=== PATIENT | female | born 1995 | race Caucasian/White ===

== ENCOUNTER 2020-01-16 08:35 | Emergency (ER) | payer OTHER, SELFPAY ==
[2020-01-16 08:43] VITALS: BP 133/95; PULSE 88; RESP 16; TEMP 37; O2SAT 98; BMI 20.5
--- NOTE | 2020-01-16 08:49 | W.ED.FALL ---
HPI - Fall General: Chief Complaint: Fall Stated Complaint: RIGHT WRIST PAIN Time Seen by Provider: 01/16/20 08:48 Source: patient Mode of arrival: ambulatory Limitations: no limitations History of Present Illness: HPI Narrative: Patient comes in today with complaints of right wrist injury. Patient reports skating last night and fell on her outstretched arm injuring her right wrist. Patient has swelling and pain with movement to the wrist and fingers. Patient appears well. Patient appears in mild to moderate pain. complaint: fall Review of Systems General: Reports: 10 or more systems reviewed and unremarkable except in HPI and below Musc: Reports: joint pain PFSH ED PFSH: Social History Smoking and tobacco status: current every day smoker Female Reproductive History: Date of last menstrual period: 01/16/20 Physical Exam Const: COMMON NORMALS: no apparent distress and oriented x3 GENERAL APPEARANCE: cooperative HENMT: COMMON NORMALS: normocephalic, external ears normal, EAC's normal, TM's normal bilaterally and external nose normal HEAD & SCALP: normal to inspection and normocephalic FACE & SINUS: normal facial exam NOSE: external nose normal GENERAL EAR: hearing not grossly impaired EXTERNAL EAR: Yes external ears normal EXTERNAL AUDITORY CANAL: EAC's normal TYMPANIC MEMBRANE: TM's normal bilaterally MOUTH: oral and palatal mucosa normal THROAT: posterior oropharynx normal Eye: COMMON NORMALS: PERRL and EOMs intact bilaterally PUPIL: Yes PERRL Neck/C-Spine: COMMON NORMALS: full ROM and no lymphadenopathy Lymph: LYMPHATIC: no lymphedema noted Chest: COMMONS NORMALS: inspection of chest normal and palpation of chest normal Resp: COMMON NORMALS: normal respiratory effort and clear to auscultation bilaterally AUSCULTATION: clear to auscultation bilaterally Cardio: COMMON NORMALS: regular rate and regular rhythm RATE: regular rate RHYTHM: regular rhythm GI: COMMON NORMALS: normal to inspection, nondistended, normoactive bowel sounds and non-tender : COMMON NORMALS: Yes no CVA tenderness BLADDER/KIDNEY EXAM: Yes no CVA tenderness Back/Pelvis: COMMON NORMALS: no CVA tenderness and thoracic and lumbar spine normal to inspection Extremity: COMMON NORMALS: normal to inspection GENERAL: Yes edema (right wrist) RIGHT UPPER EXTREMITY: Yes wrist Right wrist: Yes inspection (mild swelling) and Yes ROM (decreased d/t pain) Neuro: COMMON NORMALS: oriented x3, moves all extremities and no focal motor deficits Psych: COMMON NORMALS: mental status grossly normal and cooperative Skin: COMMON NORMALS: no rashes or lesions noted GENERAL SKIN EXAM: no rashes or lesions noted Course Vital Signs: Vital signs: Vital Signs Temperature 98.6 F 01/16/20 08:43 Pulse Rate 88 01/16/20 08:43 Respiratory Rate 16 01/16/20 08:43 Blood Pressure 133/95 01/16/20 08:43 Pulse Oximetry 98 01/16/20 08:43 MDM - Fall MDM Narrative: Medical decision making narrative: Patient comes in with injury to the right wrist area. On exam we note swelling and tenderness and decreased range of motion due to pain to the right wrist and hand. Differential diagnosis includes fracture, sprain, contusion. X-ray notes a nondisplaced scaphoid bone fracture of the carpals on the right side. Reviewed exam with patient recommended splinting and follow-up with orthopedics. Patient reports understanding agreed to plan. Discharge Plan Discharge Patient Disposition: Home, Self-Care Clinical Impression: Scaphoid fracture Qualifiers: Encounter type: initial encounter Scaphoid bone location: middle third Fracture type: closed Fracture alignment: nondisplaced Laterality: right Qualified Code(s): S62.024A - Nondisplaced fracture of middle third of navicular [scaphoid] bone of right wrist, initial encounter for closed fracture Condition: Stable Prescriptions: New hydrocodone-acetaminophen 5-325 mg tablet 1 tab PO Q8H PRN (Reason: pain (scale score 7-10)) Qty: 6 RF: 0 Discharge Orders: Discharge Order (Routine); Ordered 01/16/20 Ordered By: Max Vargas Referrals: [facility]RGENT [facility], [Family Provider] - Discharge Diet: Usual diet Discharge Activity: Increase activity as tolerated Patient Instructions: Scaphoid Fracture (ED) Activity Restrictions/Additional Instructions: Keep splint clean and dry Sling for comfort Case management will contact you Saturday with orthopedic appointment Follow-up with primary care in one week Return to ER for any concerns Coding Level of Care Code ED Cigarette Packer for [facility] Fwd Exam Comprehensive
--- NOTE | 2020-01-16 08:50 | XR_ITS ---
WS: [id number] XR wrist RT min 3V* [id number] REASON FOR EXAM: injury FINDINGS: The ulna and radius are normal no soft tissue swelling. There is no fractures seen. The scaphoid shows a fracture through the mid body no displacement is seen. XR/XR wrist RT min 3V* [id number] IMPRESSION: Fracture of the scaphoid.
[2020-01-16 09:54] VITALS: PULSE 80; RESP 16; O2SAT 97
--- NOTE | 2020-01-18 12:22 | DCPLANNER ---
Addendum entered by Alma Dominguez 01/18/20 14:53: Pat from ortho called mattress spring encaser, a follow up appointment is scheduled for Monday, January 20, 2020 at 3:[address] Bob. Clinic called patient with appointment information. Original Note: circuit manager had message to schedule a follow up appointment for patient with ortho. circuit manager called the ortho clinic, spoke with Pat, gave clinic patients information. circuit manager was told that patients information would be printed and reviewed. Clinic will call mattress spring enc[facility] and patient with appointment information.
--- NOTE | 2020-01-21 10:09 | DCPLANNER ---
Patient did attend appointment scheduled for 01.20.20 with ortho.
== END 2020-01-16 09:54 | disposition home or self-care (01) ==
PROVIDERS: Emergency Provider Nurse Practitioner Family
DX: S62.024A Nondisplaced fracture of middle third of navicular [scaphoid] bone of right wrist, initial encounter for closed fracture (principal); W19.XXXA Unspecified fall, initial encounter; Y93.21 Activity, ice skating; F17.210 Nicotine dependence, cigarettes, uncomplicated
CPT/HCPCS: 12345; 29125; 73110; 99283

== ENCOUNTER → 2020-01-20 15:30 | Outpatient (BNVA) | payer OTHER, SELFPAY | PROVIDERS: Referring Provider Nurse Practitioner Family; Visit Provider Specialist | DX: M25.531 Pain in right wrist (principal) | CPT/HCPCS: 73110 ==

== ENCOUNTER 2020-01-20 16:05 | Outpatient (CLI) | payer OTHER, SELFPAY | END 2020-01-20 16:06 | disposition home or self-care (01) | LOC: SPT 16:06 | PROVIDERS: Visit Provider Specialist | DX: Z46.89 Encounter for fitting and adjustment of other specified devices (principal); S62.014D Nondisplaced fracture of distal pole of navicular [scaphoid] bone of right wrist, subsequent encounter for fracture with routine healing; X58.XXXD Exposure to other specified factors, subsequent encounter | CPT/HCPCS: L3984 ==

== ENCOUNTER → 2020-08-29 13:03 | Day surgery (SDC) | payer MEDICAID, SELFPAY ==
[2020-08-29 14:56] VITALS: BP 116/77; PULSE 87; RESP 18; TEMP 36.6; O2SAT 98
[2020-08-29 15:07] VITALS: BMI 20.7
[2020-08-29 15:18] VITALS: BP 116/77; PULSE 87; RESP 18; TEMP 36.6
== END ==
PROVIDERS: Visit Provider Family Medicine
DX: Z34.80 Encounter for supervision of other normal pregnancy, unspecified trimester (principal); Z31.82 Encounter for Rh incompatibility status; Z67.91 Unspecified blood type, Rh negative
CPT/HCPCS: 36415; 86850; 86900; 90384; 96372

== ENCOUNTER 2020-11-01 10:48 | Outpatient (CLI) | payer MEDICAID, SELFPAY ==
[2020-11-01] VITALS (10 sets, daily range): BP systolic 136–153; BP diastolic 88–95; PULSE 71–77; RESP 16; TEMP 36.5; BMI 22.9
[2020-11-01 11:37] LABS: Add Urine Microscopic? NO
[2020-11-01 11:51] LABS: Basophils % 0.4 %; Eosinophils # 0.2 10^3/uL (0.0-0.8); Eosinophils % 2.1 %; Hematocrit 40.6 % (37.0-47.0); Hemoglobin 13.8 g/dL (11.5-15.3); Lymphocytes # 1.7 10^3/uL (0.8-4.8); Lymphocytes % 18.6 %; Mean Corpuscular Hemoglobin 31.3 pg (28.0-34.0); Mean Corpuscular Volume 92.1 fL (81-99); Mean Platelet Volume 12.9 fL (7.4-10.4); Monocytes # 0.9 10^3/uL (0.2-0.9); Monocytes % 9.2 %; Neutrophils # 6.47 10^3/uL (1.8-7.7); Neutrophils % 69.3 %; Nucleated Red Blood Cells % 0 %; Platelet Count 143 10^3/cmm (130-400); Red Blood Count 4.41 10^6/uL (4.1-5.3); Red Cell Distribution Width 12.4 % (12.1-15.1); White Blood Count 9.4 10^3/uL (4.0-10.0)
[2020-11-01 11:58] LABS: Bilirubin Urine Neg (Negative); Blood Urine Neg (Negative); Glucose Urine UA Norm (Normal); Ketones Urine Negative (Negative); Leukocyte Esterase Urine Negative (Negative); Nitrate Urine Negative (Negative); Protein Urine Neg (Negative); Urine Appearance Clear (CLEAR); Urine Color Yellow (Yellow); Urobilinogen Urine Norm (Negative); pH Urine 6 (5-7)
[2020-11-01 12:14] LABS: Alanine Aminotransferase 11 U/L (0-33); Albumin Level 3.4 g/dL (3.5-5.2); Alkaline Phosphatase 155 IU/L (35-105); Anion Gap 15.2 (5-19); Aspartate Amino Transferase 18 U/L (0-32); Blood Urea Nitrogen 11 mg/dL (6-20); Calcium 8.9 mg/dL (8.5-10.5); Carbon Dioxide 22 mmol/L (22-29); Chloride 103 mmol/L (98-107); Globulin 2.7 g/dL (1.3-4.6); Glomerular Filtration Rate 151.6 mL/min (90-130); Glucose 76 mg/dL (65-115); Osmolality Calculated 280 mOsm/kg (285-295); Potassium 4.2 mmol/L (3.5-5.1); Sodium 136 mmol/L (136-145); Total Bilirubin 0.2 mg/dL (0.15-1.2); Total Protein 6.1 g/dL (6.6-8.7)
[2020-11-01 12:17] LABS: Urine Creatinine 93 mg/dL (28-217); Urine Protein Random 11 mg/dL
[2020-11-01 12:24] LABS: UPRO/UCREAT Ratio 0.12 mg/mg CR
[2020-11-01] MEDS: metoprolol tartrate 50 mg Tablet PO (14:10)
== END 2020-11-01 14:20 | disposition home or self-care (01) ==
LOC: OPOB 10:52 → OBGYN 10:53
PROVIDERS: Visit Provider Family Medicine
DX: O16.9 Unspecified maternal hypertension, unspecified trimester (principal); Z3A.00 Weeks of gestation of pregnancy not specified
CPT/HCPCS: 59025; 80053; 81003; 82570; 84156; 84550; 85025; 99211

== ENCOUNTER 2020-11-01 17:11 | Inpatient (IN) | payer MEDICAID, SELFPAY ==
[2020-11-01] VITALS (35 sets, daily range): BP systolic 0–168; BP diastolic 0–102; PULSE 62–98; RESP 17; TEMP 36.2; O2SAT 90–100; BMI 22.9
[2020-11-01] MEDS: miSOPROStol 100 mcg tablet 25 MCG VAGINAL (18:20)
--- NOTE | 2020-11-01 18:30 | PC.NURSE ---
PT IS ON SUBOXONE FOR HISTORY OF DRUG USE. PATIENT STATED THAT SHE HAS NOT USED IN A COUPLE OF YEARS THEN DAD SPOKE UP AND SAID YOU DID IT IN JANUARY AFTER YOOU BROKE YOUR WRIST AND THEN SHE SAID OH YEAH I SLIPPED UP THEN.
[2020-11-01 18:33] LABS: Basophils # 0.1 10^3/uL (0.0-0.1); Basophils % 0.4 %; Eosinophils # 0.1 10^3/uL (0.0-0.8); Eosinophils % 0.7 %; Hematocrit 39.3 % (37.0-47.0); Hemoglobin 13.7 g/dL (11.5-15.3); Lymphocytes # 1.8 10^3/uL (0.8-4.8); Lymphocytes % 13.6 %; Mean Corpuscular HGB Conc 34.9 g/dL (30.0-36.0); Mean Corpuscular Hemoglobin 31.5 pg (28.0-34.0); Mean Corpuscular Volume 90.3 fL (81-99); Mean Platelet Volume 12.8 fL (7.4-10.4); Monocytes # 0.9 10^3/uL (0.2-0.9); Monocytes % 6.7 %; Neutrophils % 78.3 %; Nucleated Red Blood Cells % 0 %; Platelet Count 151 10^3/cmm (130-400); Red Blood Count 4.35 10^6/uL (4.1-5.3); Red Cell Distribution Width 12.2 % (12.1-15.1); White Blood Count 13.2 10^3/uL (4.0-10.0)
--- NOTE | 2020-11-01 22:48 | ANES.PREANE2 ---
Pre-Anesthetic Assessment Pre-Anesthetic Assessment: Height/Weight: Height 1.65 m Weight 62.596 kg Temp Pulse Resp BP 97.2 F L 75 17 149/89 11/01/20 17:24 11/01/20 22:43 11/01/20 17:24 11/01/20 22:43 Preop Diagnosis: labor Proposed Procedure: Epidural Familial anesthetic complications: na Was Beta Candie taken within 24 hours: N/A Last Intake: 18:00 Social: Social History: No alcohol and No tobacco (1/2ppd) Packs per day: 1/2ppd Pack years: 8yrs Exam: Pre-Anes Outpt Exam: alert, oriented x 3, clear to auscultation bilaterally and regular rate & rhythm Airway: Submandibular: WNL Cervical ROM: WNL MP: 2 Dentition: Full Pulmonary: Pulmonary: None reported CV/HEM: CV/HEM: None reported : : None reported Hepatic: Hepatic: None reported GI: GI: None reported Metabolic: Metabolic: None reported Musc/skel: Musc/skel: None reported Neuropsych: Neuropsych: Anxiety and Depression Anesthetic Plan: ASA status: 2 Anesthesia: Regional (specify below) (epidural) Risk of > 500 ml blood loss (7ml/kg in children): No Meds/Allergies Current Medications: Current Medications Generic Name Dose Route Start Last Admin Trade Name Freq PRN Reason Stop Dose Admin Misoprostol 25 mcg 11/01/20 17:30 11/01/20 18:20 Misoprostol 100 Mcg Tablet VAGINAL 25 mcg ONCE BRANT Administration PFSH Anesthesia PFSH: Social History Smoking and tobacco status: current every day smoker Female Reproductive History: Date of last menstrual period: 01/16/20 : 4 Data Anesthesia CBC & Chem 7: 11/01/20 17:50 Other Labs: Laboratory Results - last 48 hr 11/01/20 17:50 WBC 13.2 H RBC 4.35 Hgb 13.7 Hct 39.3 MCV 90.3 MCH 31.5 MCHC 34.9 RDW 12.2 Plt Count 151 MPV 12.8 H Neut % (Auto) 78.3 Lymph % (Auto) 13.6 [place] % (Auto) 6.7 Eos % (Auto) 0.7 Baso % (Auto) 0.4 Neut # (Auto) 10.30 H Lymph # (Auto) 1.8 [place] # (Auto) 0.9 Eos # (Auto) 0.1 Baso # (Auto) 0.1 Nucleated RBC % (auto) 0 Nucleated RBCs # 0.0 Cardiac Studies: No Data to Display
--- NOTE | 2020-11-01 23:23 | ANES.PROC ---
Anesthesia Procedures Procedure/Date: 11/01/20 Epidural: Time Out Performed: Yes Consents Signed: Procedure Consent and NPO Consent Consent: requested by attending/covering physician, from patient, risks and benefits reviewed and patient agrees to proceed Lumbar Level: L3-L4 Epidural position: sitting Epidural procedure: sterile prep of area (betadine), 1% lidocaine to numb the area, 18 g needle, neg for paresthesia, test dose given, 1.5% xylocaine 1:200k epi (5ml), 0.2% Ropivacaine bolus ml (5ml), placed PCEA, no systemic response, sterile dressing applied, L.U.D. no apparent complications and 0.2% Ropiavacaine @ mls/hr (10ml/hr)
[2020-11-02] VITALS (58 sets, daily range): BP systolic 0–166; BP diastolic 0–104; PULSE 60–96; RESP 16–18; TEMP 36.4–36.8; O2SAT 82–98
--- NOTE | 2020-11-02 05:14 | PM.DELIVERY ---
Delivery Note: Date of delivery: November 02, 2020 Pre-Delivery Course: The patient had routine care at [facility]. Her was complicated by the use of Suboxone and tobacco. She states her last illicit drug use was January 2020. She was known to be blood type O- antibody negative she received RhoGam around 28 weeks gestation. Her other labs were unremarkable. Hepatitis B surface antigen nonreactive, HIV nonreactive, rubella immune, GBS negative, glucose tolerance test 97. 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 She underwent colposcopy and plans to follow-up after delivery with Pap. Delivery: This is a 25-year-old at 38 weeks 3 days gestation who was sent to labor and delivery after having elevated blood pressures in office during routine visit. Her blood pressures in office were running 150s to 160s over 90s. She was sent to labor and delivery triage and had [facility] labs drawn her urine protein creatinine ratio was 0.12 platelets 143 AST 18 ALT 11 uric acid 6.0. Her blood pressures on bedrest were still elevated 153/95 so decision was made to go ahead and proceed with induction. Her cervix was not favorable so she was given a dose of Cytotec. Afterwards her labor progressed well on its own and she received an epidural for pain management. She had spontaneous rupture of membranes with clear fluid less than 15 minutes prior to delivery she had a normal spontaneous vaginal delivery of a viable female infant weight 2940 g, Apgars 9 and 9 over an intact perineum. The infant was suctioned at delivery and placed on the mother's chest. The cord was clamped and cut. Cord blood was obtained. The placenta was delivered grossly intact and normal to inspection. Mother and were doing well after delivery. Estimated blood loss 100 mL. A&P Assessment and plan (1) Normal vaginal delivery of fourth : Routine postoperative care Status: Acute (2) History of drug abuse: Patient may take her home dose of Suboxone Status: Acute (3) Tobacco use complicating : Status: Acute Coding Level of Care Code Acute Lens Coating Technician for [facility] Fwd Diagnoses Normal vaginal delivery of fourth O80 History of drug abuse F19.11 Tobacco use complicating O99.330
[2020-11-02] MEDS: ibuprofen 800 mg tablet PO ×3 (08:31→20:26)
[2020-11-02] MEDS: docusate sodium 100 mg Capsule PO ×2 (08:31→20:26)
[2020-11-02] MEDS: prenatal vitamin Capsule 1 CAP PO (08:31)
[2020-11-02] MEDS: acetaminophen 325 mg Tablet 650 MG PO (15:46)
[2020-11-02 18:18] LABS: Hematocrit 38.4 % (37.0-47.0); Hemoglobin 12.9 g/dL (11.5-15.3); Mean Corpuscular HGB Conc 33.6 g/dL (30.0-36.0); Mean Corpuscular Hemoglobin 30.9 pg (28.0-34.0); Mean Corpuscular Volume 92.1 fL (81-99); Platelet Count 135 10^3/cmm (130-400); Red Blood Count 4.17 10^6/uL (4.1-5.3); Red Cell Distribution Width 12.5 % (12.1-15.1); White Blood Count 12.8 10^3/uL (4.0-10.0)
[2020-11-02 18:26] LABS: Coronavirus Test Green County Not Detected
[2020-11-03] VITALS (23 sets, daily range): BP systolic 131–168; BP diastolic 81–105; PULSE 62–92; RESP 12–22; TEMP 36.4–36.8; O2SAT 95–99
[2020-11-03] MEDS: acetaminophen 325 mg Tablet 650 MG PO (00:46)
--- NOTE | 2020-11-03 07:32 | P.ANESASSM_ITS ---
Pre-Anesthetic Assessment Pre-Anesthetic Assessment: Height/Weight: Height 1.65 m Weight 62.596 kg Temp Pulse Resp BP Pulse Ox 97.8 F 62 15 141/95 98 11/03/20 04:30 11/03/20 04:30 11/03/20 04:30 11/03/20 04:30 11/03/20 04:30 Preop Diagnosis: labor Proposed Procedure: Operation Date: 11/03/20 10:00 Proposed Procedures p Bilateral Tubal Ligation(Bilateral) - Smitha Orr MD Social: Social History: Alcohol (H/O drug abuse) and Tobacco Exam: Pre-Anes Outpt Exam: alert, oriented x 3, clear to auscultation bilaterally and regular rate & rhythm Airway: Submandibular: WNL Cervical ROM: WNL MP: 2 Additional comments: teeth ok History/ROS: No significant history except as noted Pulmonary: Pulmonary: None reported CV/HEM: CV/HEM: None reported : : None reported Hepatic: Hepatic: None reported GI: GI: None reported Metabolic: Metabolic: None reported Musc/skel: Musc/skel: None reported Neuropsych: Neuropsych: None reported Anesthetic Plan: ASA status: 2 Anesthesia: General Risk of > 500 ml blood loss (7ml/kg in children): No Meds/Allergies Current Medications: Current Medications Generic Name Dose Route Start Last Admin Trade Name Freq PRN Reason Stop Dose Admin Acetaminophen 650 mg 11/02/20 08:14 11/03/20 00:46 Acetaminophen 32 5 Mg Tablet PO 650 mg Q6H PRN Administration mild pain for tem p >100.4. Docusate Sodium 100 mg 11/02/20 09:00 11/02/20 20:26 Docusate Sodium 100 Mg Capsule PO 100 mg BID BRANT Administration Docusate Sodium 100 mg 11/02/20 09:00 11/02/20 15:45 Docusate Sodium 100 Mg Capsule PO Not Given BID BRANT Ibuprofen 800 mg 11/02/20 09:00 11/02/20 20:26 Ibuprofen 800 Mg Tablet PO 800 mg TID BRANT Administration Ibuprofen 800 mg 11/02/20 09:00 11/02/20 19:31 Ibuprofen 800 Mg Tablet PO Not Given TID BRANT Multivit/ Folic Acid/Iron 1 cap 11/02/20 09:00 11/02/20 08:31 Vitamin Capsule PO 1 cap DAILY BRANT Administration Multivit/ Folic Acid/Iron 1 cap 11/02/20 09:00 11/02/20 15:45 Vitamin Capsule PO Not Given DAILY BRANT PFSH Anesthesia PFSH: Medical History Fracture of scaphoid bone of right wrist History of drug abuse Normal vaginal delivery of fourth Tobacco use complicating Social History Smoking and tobacco status: current every day smoker Female Reproductive History: Date of last menstrual period: 01/16/20 : 4 Data Anesthesia CBC & Chem 7: 11/02/20 17:50 Other Labs: Laboratory Results - last 48 hr 11/01/20 11/01/20 11/01/20 17:50 17:50 22:10 WBC 13.2 H RBC 4.35 Hgb 13.7 Hct 39.3 MCV 90.3 MCH 31.5 MCHC 34.9 RDW 12.2 Plt Count 151 MPV 12.8 H Neut % (Auto) 78.3 Lymph % (Auto) 13.6 [place] % (Auto) 6.7 Eos % (Auto) 0.7 Baso % (Auto) 0.4 Neut # (Auto) 10.30 H Lymph # (Auto) 1.8 [place] # (Auto) 0.9 Eos # (Auto) 0.1 Baso # (Auto) 0.1 Nucleated RBC % (auto) 0 Nucleated RBCs # 0.0 Nasal/Oral COVID-19 PCR Not detected Blood Type O Negative Rho(D) Type Negative Antibody Screen Positive Antibody Identification Anti-D Screen 11/02/20 11/02/20 17:50 17:50 WBC 12.8 H RBC 4.17 Hgb 12.9 Hct 38.4 MCV 92.1 MCH 30.9 MCHC 33.6 RDW 12.5 Plt Count 135 MPV 13.0 H Neut % (Auto) Lymph % (Auto) [place] % (Auto) Eos % (Auto) Baso % (Auto) Neut # (Auto) Lymph # (Auto) [place] # (Auto) Eos # (Auto) Baso # (Auto) Nucleated RBC % (auto) Nucleated RBCs # Nasal/Oral COVID-19 PCR Blood Type Rho(D) Type Antibody Screen Antibody Identification Screen Negative Cardiac Studies: No Data to Display
--- NOTE | 2020-11-03 09:20 | PC.NURSE ---
Patient taken to PACU to prep for surgery at this time via wheelchair. Report given to PACU nurses.
--- NOTE | 2020-11-03 09:22 | PC.NURSE ---
Patient assisted to downstairs OR by wheelchair with OR staff.
[2020-11-03] MEDS: sodium chloride 0.9% 1,000 ML 30 ML IV (09:35)
--- NOTE | 2020-11-03 10:07 | PM.HP ---
Providers/Chief Complaint Admitting Physician: Smitha Orr MD Chief Complaint: gestational HTN, induction of labor History of Present Illness Samantha Hein is a 25 year old female who is a G4 now P4 who had a normal spontaneous vaginal delivery yesterday morning. She has wanted to receive bilateral tubal ligation and this is planned for today. Review of Systems Const: Denies: fever(s) or chills Eyes: Denies: change in vision ENMT: Denies: throat pain Card: Denies: chest pain or palpitations Resp: Denies: dyspnea or productive cough GI: Denies: abdominal pain, nausea or vomiting : Denies: flank pain Skin/Breast: Denies: rash Neuro: Denies: headache(s) or numbness in extremities Medications/Allergies Home Medications Medication Instructions Recorded Confirmed Last Taken Type Thumb spica fast form splint #1 ea 01/20/20 01/20/20 Unknown Rx buprenorphine-naloxone [Suboxone] 1 tab SUBLINGUAL TID 11/01/20 11/01/20 11/01/20 16:00 History prenat.vits,rosie,[id number] 1 tab PO DAILY 11/01/20 11/01/20 11/01/20 09:00 History [ Vitamin] Allergies Allergy/AdvReac Type Severity Reaction Status Date / Time No Known Allergies Allergy Verified 11/03/20 09:39 PFSH Acute PFSH: Medical History Fracture of scaphoid bone of right wrist History of drug abuse Normal vaginal delivery of fourth Tobacco use complicating Social History Smoking and tobacco status: current every day smoker Female Reproductive History: Date of last menstrual period: 01/16/20 : 4 Vitals/I&O/Wt Last Vital Signs Temp 97.5 F L 11/03/20 09:29 Pulse 72 11/03/20 09:29 Resp 18 11/03/20 09:29 BP 152/99 11/03/20 09:29 Pulse Ox 98 11/03/20 09:29 Weight last 48 hrs Weight 138 lb Weight 138 lb Physical Exam HENMT: COMMON NORMALS: normocephalic and atraumatic FACE & SINUS: normal facial exam Chest: COMMONS NORMALS: normal inspection of the chest Resp: COMMON NORMALS: normal respiratory effort and No retractions Cardio: COMMON NORMALS: regular rate and regular rhythm GI: COMMON NORMALS: Soft to palpation (Fundus firm U- 2) and non-tender Extremity: GENERAL: No edema Urinary Catheter Management^: Radford: Cath Placed During This Visit: yes Urinary Catheter Date of Insertion: 11/02/20 Urinary Catheter Time of Insertion: 23:12 Data : 11/02/20 17:50 A&P Assessment and plan (1) Encounter for sterilization: Proceed with bilateral tubal ligation. If patient is doing well she can likely be discharged home after the procedure Status: Acute Attestations Medical Necessity Statement*: Routine surgery and postoperative care Coding Level of Care Code Acute Construction Project Assistant for [facility] Diagnoses Encounter for sterilization Z30.2
--- NOTE | 2020-11-03 10:52 | PM.OP ---
Operative Report Date of procedure: November 03, 2020 Pre-op Diagnosis: Desired permanent surgical sterilization Post-op diagnosis: same Procedure Done: bilateral tubal ligation Specimens removed/disposition: Segments of right and left fallopian tubes Surgeon: Smitha Orr Anesthesia: General Estimated blood loss (mL): 2 IV fluids (mL): 400 Complications: None Condition: stable Disposition: floor Procedure: After informed consent the patient was taken to the OR where general anesthesia was administered. She was prepped and draped in normal sterile fashion in dorsal supine position. A curvilinear infraumbilical incision was made using a 15 blade. The incision was carried down to the fascia bluntly using a hemostat. The fascia was grasped with Allis clamps and entered sharply using the Metzenbaums. The peritoneum was then entered digitally. The left fallopian tube was grasped with a Rodrick and brought into the operative field. Fimbria were identified. A midportion of the tube was ligated and excised. Specimen was sent to pathology. The cut portions of the tube were coagulated using the Bovie and there was excellent hemostasis. The cut portions of the tube were then returned to the abdomen. The right fallopian tube was then grasped with a Rodrick and brought into the operative field. Fimbria were identified. A midportion of the tube was ligated and excised and specimen was sent to pathology. Tubal ostia were identified. The cut portions of the tube were coagulated using the Bovie and then returned to the abdomen after hemostasis was obtained. The peritoneum and fascia was then reapproximated using 0 Vicryl in a running fashion. The skin was then reapproximated using 4-0 Vicryl in a running fashion. 10 mL of 2% lidocaine was injected circumferentially around the incision site. Steri-Strips and a pressure bandage were applied. Sponge instrument and needle counts were correct and patient went to recovery in stable condition
[2020-11-03] MEDS: ondansetron 2 mg/ML SDV 2 mL 4 MG IVP (11:02)
[2020-11-03] MEDS: morphine 4 mg/mL SDV 1 mL 2 MG IVP ×2 (11:12→11:17)
[2020-11-03] MEDS: fentaNYL 50 mcg/mL INJ 2mL IVP ×2 (11:22→11:27)
[2020-11-03] MEDS: ibuprofen 800 mg tablet PO (15:31)
[2020-11-03] MEDS: acetaminophen 500 mg Tablet 1000 MG PO (16:54)
[2020-11-03] MEDS: docusate sodium 100 mg Capsule PO (19:04)
--- NOTE | 2020-11-15 17:23 | P.DS_ITS ---
Discharge Providers Date of Admission: 11/01/20 17:11 Date of Discharge: November 15, 2020 Attending Provider at Admission: Smitha Orr MD Attending Provider at Discharge: Smitha Orr MD Diagnoses at Discharge Discharge Diagnosis (1) Encounter for sterilization: Status: Acute (2) Normal vaginal delivery of fourth : Status: Acute (3) History of drug abuse: Status: Acute (4) Tobacco use complicating : Status: Acute Reason for Visit Reason for Visit: gestational HTN, induction of labor Hospital Course Hospital Course This is a 25 y/o G4 now P4 who was admitted for induction due to elevated BP at term. She had a of a viable . The pts was complicated by suboxone use and the laste onset GHTN. The pt had a tubal ligation on PPD#1. She did well afterwards despite requiring higher doses of pain medication (likely due to the suboxone). Her bleeding was minimal. Her BP were still mildly elevated, but not in the severe range. Physical Exam Const: COMMON NORMALS: no acute distress GENERAL APPEARANCE: cooperative and comfortable HENMT: COMMON NORMALS: normocephalic HEAD & SCALP: normocephalic Chest: COMMONS NORMALS: normal inspection of the chest Resp: COMMON NORMALS: normal respiratory effort and clear to auscultation bilaterally AUSCULTATION: clear to auscultation bilaterally Cardio: COMMON NORMALS: regular rate and regular rhythm RATE: regular rate RHYTHM: regular rhythm GI: COMMON NORMALS: Soft to palpation (fundus firm and U-2) and no masses PALPATION: Yes Soft to palpation (fundus firm and U-2) Extremity: GENERAL: No calf tenderness and Yes edema Urinary Catheter Management^: Radford: Cath Placed During This Visit: yes Urinary Catheter Date of Insertion: 11/02/20 Urinary Catheter Time of Insertion: 23:12 Discharge Data Data Completed and Pending: Completed Studies During Hospitalization Category Date Time Status Pathology: Surgic al [PTH] Routine Pth 11/03/20 10:53 Completed Vitals: Last Vital Signs Temp 98.3 F 11/03/20 19:00 Pulse 78 11/03/20 19:00 Resp 16 11/03/20 19:00 BP 132/85 11/03/20 19:00 Pulse Ox 98 11/03/20 19:00 Discharge Plan Discharge Patient Disposition: Home Prescriptions: Continued Vitamin Tablet 1 tab PO DAILY RF: 0 buprenorphine-naloxone [Suboxone] 2-0.5 mg Tablet, Sublingual 1 tab SUBLINGUAL TID RF: 0 Discontinued (DME) Thumb spica fast form splint Qty: 1 RF: 0 Discharge Orders: Discharge Order (Routine); Ordered 11/03/20 Ordered By: Smitha Orr Referrals: Smitha Orr MD [Physician] - 11/17/20 10:15 am (Please call [facility] next week to schedule your appointment with Dr. Orr next week. * Your 2 week incision check is with Dr. Orr on 11/17/2020 at 10:15am * You 4 week appointment is with Dr. Orr on 12/14/2020 at 11:15am. ) Discharge Diet: Usual diet Discharge Activity: Resume usual activity Patient Instructions: Laparoscopic Tubal Ligation (DC), OB Discharge Report, OB Food/Drug Interaction Guide, OB Care at Home, OB Proud Parent Packet, OB Vaginal Deliveries Discharge Attestations Time Spent in Discharge Care*: less than 30 min Quality Metrics Clinical Quality Measures During this hospital stay, did patient experience: None Coding Level of Care Code Acute Scale Attendant for [facility] Fwd Diagnoses Encounter for sterilization Z30.2 Normal vaginal delivery of fourth O80 History of drug abuse F19.11 Tobacco use complicating O99.330
== END 2020-11-03 19:34 | disposition home or self-care (01) | DRG 797 ==
PROVIDERS: Admitting Provider Family Medicine; Visit Provider Family Medicine
PROC: 0UT74ZZ Resection of Bilateral Fallopian Tubes, Percutaneous Endoscopic Approach (ICD-10-PCS; CPT 58605; principal; 2020-11-03 10:00)
DX: O13.4 Gestational [pregnancy-induced] hypertension without significant proteinuria, complicating childbirth (principal); F11.20 Opioid dependence, uncomplicated; Z37.0 Single live birth; O99.334 Smoking (tobacco) complicating childbirth; O99.324 Drug use complicating childbirth; F17.210 Nicotine dependence, cigarettes, uncomplicated; Z3A.38 38 weeks gestation of pregnancy; Z30.2 Encounter for sterilization
CPT/HCPCS: 36415; 36430; 51702; 59025; 59409; 80500; 85025; 85027; 85460; 86850; 86870; 86900; 87635; 88302; 90384; 90471; 90686; 99211; J0330; J1100; J2270; J2405; J2704; J2710; J3010; J3490; J7030

== ENCOUNTER 2025-01-23 14:04 | Inpatient (IN) | payer SELFPAY ==
[2025-01-23] VITALS (10 sets, daily range): BP systolic 98–129; BP diastolic 57–78; PULSE 133–160; RESP 15–25; TEMP 36.9–37.7; O2SAT 94–100
--- NOTE | 2025-01-23 14:14 | CTR_ITS ---
PROCEDURE INFORMATION: Exam: CT Abdomen And Pelvis With Contrast Exam date and time: 01/23/2025 3:13 PM Age: 29 years old Clinical indication: Abdominal pain; Localized; Right lower quadrant (rlq); Prior surgery; Surgery date: 6+ months; Surgery type: Hyster; Additional info: Abd pain TECHNIQUE: Imaging protocol: Computed tomography of the abdomen and pelvis with contrast. Radiation optimization: All CT scans at this facility use at least one of these dose optimization techniques: automated exposure control; mA and/or kV adjustment per patient size (includes targeted exams where dose is matched to clinical indication); or iterative reconstruction. Contrast material: OMNIPAQUE 350; Contrast volume: 80 ml; Contrast route: INTRAVENOUS (IV); COMPARISON: No relevant prior studies available. RADIATION DOSE METRICS: Total DLP (mGy-cm): 331.92 FINDINGS: Lungs: Consolidations noted in the lung bases, [id number]. Small volume left pleural effusion. Liver: Normal. No mass. Gallbladder and biliary ducts: Normal. No calcified stones. No ductal dilation. Pancreas: Normal. No ductal dilation. Spleen: Mild splenomegaly measuring 14 cm in length. Adrenal glands: Normal. No mass. Kidneys and ureters: Normal. No hydronephrosis. Stomach and bowel: Unremarkable. No obstruction. No mucosal thickening. Appendix: No evidence of appendicitis. Intraperitoneal space: Small volume pelvic free fluid. No free air. No significant fluid collection. Vasculature: Unremarkable. No abdominal aortic aneurysm. Lymph nodes: Unremarkable. No enlarged lymph nodes. Urinary bladder: Circumferential wall thickening of the bladder. Reproductive: Unremarkable as visualized. Bones/joints: No acute fracture. Soft tissues: Unremarkable. CT/CT abdomen pelvis w con* [id number] IMPRESSION: 1. Circumferential wall thickening of the bladder correlate with urinalysis to assess for cystitis. 2. Bibasilar pneumonia with left parapneumonic effusion. 3. Mild splenomegaly. 4. Nonspecific small volume free fluid in the pelvis.
--- NOTE | 2025-01-23 14:16 | ED_ITS ---
HPI - Abdominal Pain 2 General: Chief Complaint: Abdominal Pain Stated Complaint: abd pain Time Seen by Provider: 01/23/25 14:06 Source: patient and EMS Mode of arrival: EMS Limitations: no limitations History of Present Illness: 29-year-old female states been having le ft lower quadrant abdominal pain over the last week. States pains been sharp in nature and worsening sent here from the clinic she is tachycardic has a low-grade fever she denies any vomiting she appears quite anxious she does have a history of drug abuse. Denies any chest pain Associated Symptoms: Reports nausea; Denies chills, diarrhea, fever(s) and vomiting Related Data Home Medications ?Medication ?Instructions ?Recorded ?Confirmed No Known Home Medications 01/23/2501/09 Allergies Allergy/AdvReac Type Severity Reaction Status Date / Time No Known Allergies Allergy Verified 01/23/25 12:59 Review of Systems 2 Const: Denies: fever(s), chills, body aches or change in appetite ENMT: Denies: throat pain or dental pain Card: Denies: chest pain Resp: Denies: dyspnea GI: Reports: abdominal pain and nausea; Denies: vomiting or diarrhea Musc: Denies: neck pain or back pain Skin/Breast: Denies: rash Neuro: Denies: headache(s) PFSH ED 2 PFSH: Medical History Tobacco use complicating History of drug abuse Normal vaginal delivery of fourth Fracture of scaphoid bone of right wrist Social History Smoking and tobacco/nicotine status: current every day tobacco/nicotine user Physical Exam 2 Const: COMMON NORMALS: patient oriented x3 HENMT: COMMON NORMALS: normocephalic and atraumatic HEAD & SCALP: n ormocephalic and atraumatic Eye: COMMON NORMALS: Equal, round and reactive pupils present and EOMs intact bilaterally PUPIL: Yes Equal, round and reactive pupils present Neck/C-Spine: COMMON NORMALS: full ROM and supple Chest: COMMONS NORMALS: normal inspection of the chest Resp: COMMON NORMALS: normal respiratory effort, No retractions, No use of accessory muscles and clear to auscultation bilaterally AUSCULTATION: clear to auscultation bilaterally Cardio: COMMON NORMALS: regular rhythm and No murmurs present (Cardio) R ATE: tachycardic RHYTHM: regular rhythm GI: COMMON NORMALS: Normal to inspection, nondistended, normoactive bowel sounds present, Soft to palpation and no masses PALPATION: Yes Soft to palpation and Yes Tenderness to palpation present (GI) Details: LLQ Extremity: COMMON NORMALS: normal to inspection and full ROM Neuro: COMMON NORMALS: patient oriented x3, moves all extremities and no focal motor deficits Psych: COMMON NORMALS: mental status grossly normal, Normal thought process present and cooperative THOUGHT PROCESS: Normal thought process present Skin: COMMON NORMALS: no rashes or lesions noted and no wounds GENERAL SKIN EXAM: no rashes or lesions noted Course 2 Vital Signs: Vital signs: Vital Signs Temperature 99.8 F H 01/23/25 14:05 Pulse Rate 147 H 01/23/25 15:40 Respiratory Rate 18 01/23/25 15:40 Blood Pressure 109/76 01/23/25 15:40 Pulse Oximetry 95 01/23/25 15:40 Oxygen Delivery Me thod Room Air 01/23/25 14:05 MDM - Abdominal Pain Medical Decision Making Patient presents here with pneumonia also meet sepsis criteria blood pressures here been stable her lactate was normal does have elevated white count did give her sepsis bolus along with antibiotics I spoke to hospitalist will admit to cardiac stepdown at this time. Medical Records I reviewed the patient's medical records. Lab Data I reviewed the patient's lab results. 01/23/25 14:16 01/23/25 14:16 Labs/Radiology: Radiology Impressions Abdomen/Pelvis CT 01/23/25 14:14 IMPRESSION: 1. Circumferential wall thickening of the bladder correlate with urinalysis to assess for cystitis. 2. Bibasilar pneumonia with left parapneumonic effusion. 3. Mild splenomegaly. 4. Nonspecific small volume free fluid in the pelvis. Chest X-Ray 01/23/25 14:36 IMPRESSION: Multifocal pneumonia most significant in the left lower lung. Laboratory Results WBC 22.80 10^3/uL (3.29-11.43) H 01/23/25 14:16 RBC 3.56 10^6/uL (3.85-5.65) L 01/23/25 14:16 Hgb 9.10 g/dL (11.27-16.99) L 01/23/25 14:16 Hct 27.3 % (36-47) L 01/23/25 14:16 MCV 76.7 fl (85-98) L 01/23/25 14:16 MCH 25.6 pg (27-33) L 01/23/25 14:16 MCHC 33.3 g/dL (30-55) 01/23/25 14:16 RDW 15.6 % (12.1-15.1) H 01/23/25 14:16 Plt Count 470 10^3/cmm (157-399) H 01/23/25 14:16 MPV 11.7 fL (7.4-10.4) H 01/23/25 14:16 Neut % (Auto) 91.4 % 01/23/25 14:16 Lymph % (Auto) 5.2 % 01/23/25 14:16 [place] % (Auto) 2.1 % 01/23/25 14:16 Eos % (Auto) 0.0 % 01/23/25 14:16 Baso % (Auto) 0.2 % 01/23/25 14:16 Neut # (Auto) 20.82 10^3/uL (1.8-7.7) H 01/23/25 14:16 Lymph # (Auto) 1.2 10^3/uL (0.8-4.8) 01/23/25 14:16 [place] # (Auto) 0.5 10^3/uL (0.2-0.9) 01/23/25 14:16 Eos # (Auto) 0.0 10^3/uL (0.0-0.8) 01/23/25 14:16 Baso # (Auto) 0.0 10^3/uL (0.0-0.1) 01/23/25 14:16 Nucleated RBC % (auto) 0 % 01/23/25 14:16 Nucleated RBCs # 0.0 /100WBC 01/23/25 14:16 Sodium 133 mmol/L (136-145) L 01/23/25 14:16 Potassium 3.8 mmol/L (3.5-5.1) 01/23/25 14:16 Chloride 93 mmol/L (98-107) L 01/23/25 14:16 Carbon Dioxide 23 mmol/L (22-29) 01/23/25 14:16 Anion Gap 20.8 (5-19) H 01/23/25 14:16 BUN 38 mg/dL (6-20) H 01/23/25 14:16 Creatinine 2.3 mg/dL (0.5-0.9) H 01/23/25 14:16 GFR Calculation 25.2 mL/min (90-130) L 01/23/25 14:16 Glucose 123 mg/dL (65-115) H 01/23/25 14:16 Calculated Osmolality 286 mOsm/kg (285-295) 01/23/25 14:16 Lactic Acid 2.1 mmol/L (0.5-2.2) 01/23/25 14:16 Calcium 9.9 mg/dL (8.5-10.5) 01/23/25 14:16 Total Bilirubin 0.6 mg/dL (0.15-1.2) 01/23/25 14:16 AST 53 U/L (0-32) H 01/23/25 14:16 ALT 84 U/L (0-33) H 01/23/25 14:16 Alkaline Phosphatase 172 U/L (35-105) H 01/23/25 14:16 Total Protein 8.6 g/dL (6.6-8.7) 01/23/25 14:16 Albumin 3.0 g/dL (3.5-5.2) L 01/23/25 14:16 Globulin 5.6 g/dL (1.3-4.6) H 01/23/25 14:16 Lipase 12 U/L (13-60) L 01/23/25 14:16 Urine Color Dark yellow (Yellow) A 01/23/25 14:44 Urine Appearance Turbid (CLEAR) A 01/23/25 14:44 Urine pH 5.0 (5-7) 01/23/25 14:44 Ur Specific [place] 1.018 (1.005-1.030) 01/23/25 14:44 Urine Protein 2+ (Negative) A 01/23/25 14:44 Urine Glucose (UA) Trace (Normal) H 01/23/25 14:44 Urine Ketones Trace (Negative) 01/23/25 14:44 Urine Blood Trace (Negative) A 01/23/25 14:44 Urine Nitrate Negative (Negative) 01/23/25 14:44 Urine Bilirubin Negative (Negative) 01/23/25 14:44 Urine Urobilinogen 1.0 mg/dL (Negative) 01/23/25 14:44 Ur Leukocyte Esterase Trace (Negative) A 01/23/25 14:44 Urine RBC 3-5 /hpf (0-2) 01/23/25 14:44 Urine WBC 21-50 /hpf (0-5) H 01/23/25 14:44 Ur Squamous Epith Cells 11-20 /hpf (0-5) H 01/23/25 14:44 Amorphous Sediment Not Reportable 01/23/25 14:44 Urine Bacteria 1+ /hpf (NONE) H 01/23/25 14:44 Hyaline Casts 94.33 /lpf 01/23/25 14:44 Fine Granular Casts 0-4 /lpf H 01/23/25 14:44 Coarse Granular Casts 5-10 /lpf H 01/23/25 14:44 Urine Opiates Screen Negative ng/mL (Negative) 01/23/25 14:44 Ur Barbiturates Screen Negative ng/mL (Negative) 01/23/25 14:44 Ur Phencyclidine Scrn Negative ng/mL (Negative) 01/23/25 14:44 Ur Amphetamines Screen Positive ng/mL (Negative) H 01/23/25 14:44 U Benzodiazepines Scrn Negative ng/mL (Negative) 01/23/25 14:44 Urine Cocaine Screen Negative ng/mL (Negative) 01/23/25 14:44 U Marijuana (THC) Screen Negative ng/mL (Negative) 01/23/25 14:44 All radiology interpretation(s) finalized by discharge EKG Data EKG 1: I personally reviewed and interpreted this EKG as follows: EKG interpretation date: 01/23/25 EKG interpretation time: 14:31 Interpretation: sinus tach hr [address] elevation qrs 86 qtc 399 Critical Care Time 2 Critical Care Time: Critical Care Time: Yes Total Critical Care Time: 40 Attestation: The high probability of a clinically significant, sudden or life threatening deterioration of the patient's resp system(s) required my full and direct attention, intervention and personal management. The critical care time is as shown. This time is in addition to time spent performing any reported procedures but includes the following: [x] Data and vital sign review and interpretation [x] Patient assessment, examination and intervention [x] Documentation [x] Medication orders and management Discharge Plan Discharge Patient Disposition: Admitted As Inpatient Clinical Impression: Pneumonia, Sepsis Condition: Stable Prescriptions: No Action No Known Home Medications Print Language: Pashto Coding Level of Care Code ED [employer] for [employer]
[2025-01-23 14:29] LABS: Basophils % 0.2 %; Hematocrit 27.3 % (36-47); Lymphocytes # 1.2 10^3/uL (0.8-4.8); Lymphocytes % 5.2 %; Mean Corpuscular HGB Conc 33.3 g/dL (30-55); Mean Corpuscular Hemoglobin 25.6 pg (27-33); Mean Corpuscular Volume 76.7 fl (85-98); Mean Platelet Volume 11.7 fL (7.4-10.4); Monocytes # 0.5 10^3/uL (0.2-0.9); Monocytes % 2.1 %; Neutrophils # 20.82 10^3/uL (1.8-7.7); Neutrophils % 91.4 %; Nucleated Red Blood Cells % 0 %; Platelet Count 470 10^3/cmm (157-399); Red Blood Count 3.56 10^6/uL (3.85-5.65); Red Cell Distribution Width 15.6 % (12.1-15.1)
[2025-01-23] MEDS: sodium chloride 0.9% 1,000 ML 999 ML IV ×2 (14:29→15:50)
[2025-01-23] MEDS: acetaminophen 325 mg Tablet 650 MG PO (14:29)
[2025-01-23] MEDS: LORazepam 2 mg/mL INJ 1 mL 1 MG IVP (14:29)
--- NOTE | 2025-01-23 14:31 | ECG_ITS ---
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
--- NOTE | 2025-01-23 14:36 | XRR_ITS ---
PROCEDURE INFORMATION: Exam: XR Chest Exam date and time: 01/23/2025 3:20 PM Age: 29 years old Clinical indication: Fever TECHNIQUE: Imaging protocol: Radiologic exam of the chest. Views: 1 view. COMPARISON: CT abdomen pelvis w con* [id number] 01/23/2025 3:13 PM FINDINGS: Lungs: Consolidation in the left lower lung. There is also a smaller ill-defined opacity in the right lower lung. Pleural spaces: Unremarkable. No pleural effusion. No pneumothorax. Heart/Mediastinum: Unremarkable. No cardiomegaly. Bones/joints: Unremarkable. XR/XR chest 1V portable [id number] IMPRESSION: Multifocal pneumonia most significant in the left lower lung.
[2025-01-23 14:42] LABS: Alanine Aminotransferase 84 U/L (0-33); Alkaline Phosphatase 172 U/L (35-105); Anion Gap 20.8 (5-19); Aspartate Amino Transferase 53 U/L (0-32); Blood Urea Nitrogen 38 mg/dL (6-20); Calcium 9.9 mg/dL (8.5-10.5); Carbon Dioxide 23 mmol/L (22-29); Chloride 93 mmol/L (98-107); Creatinine Clr Calc Pharmacy 31.1343; Globulin 5.6 g/dL (1.3-4.6); Glomerular Filtration Rate 25.2 mL/min (90-130); Glucose 123 mg/dL (65-115); Lipase 12 U/L (13-60); Osmolality Calculated 286 mOsm/kg (285-295); Potassium 3.8 mmol/L (3.5-5.1); Sodium 133 mmol/L (136-145); Total Bilirubin 0.6 mg/dL (0.15-1.2); Total Protein 8.6 g/dL (6.6-8.7)
[2025-01-23 14:43] LABS: Lactic Sepsis W/Reflex 2.1 mmol/L (0.5-2.2)
[2025-01-23] MEDS: sodium chloride 0.9% 500 ML 999 ML IV (14:45)
[2025-01-23 15:20] LABS: Bilirubin Urine Negative (Negative); Blood Urine Trace (Negative); Glucose Urine UA Trace (Normal); Ketones Urine Trace (Negative); Leukocyte Esterase Urine Trace (Negative); Nitrate Urine Negative (Negative); Protein Urine 2+ (Negative); Specific Gravity, Urine 1.018 (1.005-1.030); Urine Appearance Turbid (CLEAR); Urine Color Dark Yellow (Yellow)
[2025-01-23 15:26] LABS: Add Urine Microscopic? YES; Hyaline Casts Urine 94.33 /lpf; WBC Urine 21-50 /hpf (0-5)
[2025-01-23] MEDS: piperacillin-tazobactam 3.375 GM in sodium chloride 0.9% (plus) 50 ML IV (15:27)
--- NOTE | 2025-01-23 15:27 | PC.NURSE ---
abx delayed d/t drawing cultures prior and pt went to CT immediately after for CT w/ contrast.
[2025-01-23 15:28] LABS: Amphetamines Screen Urine Positive (Negative); Barbiturates Screen Urine Negative (Negative); Benzodiazepines Screen Urine Negative (Negative); Cocaine Screen Urine Negative (Negative); Opiate Screen Urine Negative (Negative); PCP Screen Urine Negative (Negative); THC Screen Urine Negative (Negative)
[2025-01-23] MEDS: iohexol 350 mg/mL 500 mL Btl (per mL) IV (15:28)
[2025-01-23] MEDS: VANCOMYCIN ADD-Vantage 1,000 MG in 0.9% NaCl ADD-Vantage 250 ML 250 MG IV (15:30)
[2025-01-23 15:42] LABS: Bacteria Urine 1+ /hpf; UA Slide Review UA Slide Review Perf
[2025-01-23 15:43] LABS: Fine Granular Casts Urine 0-4 /lpf
--- NOTE | 2025-01-23 16:02 | P.HP_ITS ---
Providers/Chief Complaint 2 Chief Complaint: abd pain History of Present Illness Samantha Hein is a 29 year old female with a past medical history significant for tobacco use disorder and methamphetamine use disorder who presents emergency department with shortness of breath x 1 week. Reports exertion worsens symptoms. Rest improves. Endorses associated cough which she describes as mostly nonproductive. Endorses associated fevers, chills, malaise and fatigue. Denies chest pains. In the emergency department, she was found to have low-grade fever with significant tachycardia. Blood pressure soft. Labs revealed severe leukocytosis, thrombocytosis, and renal failure. Imaging revealed multifocal pneumonia. Review of Systems 2 Narrative: A complete review of systems was obtained and is negative except as stated in HPI. Medications/Allergies Home Medications ?Medication ?Instructions ?Recorded ?Confirmed ?Last Taken ?Type No Known Home Medications 01/23/2501/09 Unknown History Allergies Allergy/AdvReac Type Severity Reaction Status Date / Time No Known Allergies Allergy Verified 01/23/25 12:59 PFSH Acute 2 PFSH: Medical History Encounter for sterilization Atypical chest pain Tobacco use complicating History of drug abuse Normal vaginal delivery of fourth Fracture of scaphoid bone of right wrist Surgical History History of tubal ligation History of adenoidectomy Family History Mother Lung cancer Grandfather Stomach cancer Sister Depression Social History Smoking and tobacco/nicotine status: current every day tobacco/nicotine user Alcohol intake: unknown Substance/Drug Use: current Vitals/I&O/Wt Last Vital Signs Temp 99.8 F H 01/23/25 14:05 Pulse 147 H 01/23/25 15:40 Resp 18 01/23/25 15:40 BP 109/76 01/23/25 15:40 Pulse Ox 95 01/23/25 15:40 O2 Del Method Room Air 01/23/25 14:05 01/23/25 01/23/25 01/23/25 06:59 14:59 22:59 Intake Total 1000 / 1000 550 / 1550 Balance 1000 / 1000 550 / 1550 Weight last 48 hrs Weight 49.895 kg Physical Exam 2 Narrative: General: Patient is awake. Acutely ill appearing. Head: Normocephalic. Atraumatic. EOM intact. Dry mucous membranes. Neck: No JVD. Cardiovascular: No gallops. No murmurs. Tachycardic with regular rhythm. Lungs: Tachypnea. Bilateral rhonchi. Accessory muscle use when speaking. Skin: No jaundice. No rashes. Abdomen: Normal bowel sounds, abdomen soft and nontender. Genito Urinary: Genital exam not performed since complaints not related. Rectal: Rectal exam not performed since no symptoms indicated blood loss. Extremities: No cyanosis or clubbing. Musculoskeletal: No swollen or erythematous joints. Neurological: Moves all 4 extremities. No myoclonus. Data 01/23/25 14:16 01/23/25 14:16 Micro: Microbiology 01/23/25 14:52 Blood Culture - Preliminary Blood SPECIMEN COLLECTED 01/23/25 14:46 Blood Culture - Preliminary Blood SPECIMEN COLLECTED A&P Assessment and plan (1) Severe sepsis: (2) KAMALJIT (acute kidney injury): (3) Pneumonia: (4) Hyponatremia: (5) Tobacco use: (6) Abnormal urinalysis: (7) History of drug abuse: (8) Transaminitis: (9) Hypoalbuminemia: (10) Dehydration: (11) Tachycardia: (12) Leukocytosis: (13) Thrombocytosis: (14) Microcytic anemia: (15) Abdominal pain: Plan Severe sepsis -Source: Bilateral [facility] pneumonia -SIRS: Tachycardia, leukocytosis, tachypnea -Endorgan damage: Acute renal failure -Blood cultures x 2 -IV fluid resuscitation -Broad-spectrum antibiotics -Check inflammatory markers Acute renal failure suspect secondary to sepsis Severe dehydration Hyponatremia/hypochloremia -Start volume resuscitation -IV fluids -Strict I's and O's -Daily weights Bilateral community-acquired pneumonia -Check bacterial antigens -Start broad-spectrum antibiotics as above -Guaifenesin -Sputum culture -Pulmonary toilet Thrombocytosis -Likely secondary to sepsis -Monitor Transaminitis -Suspect secondary to sepsis -Trend CMP -Avoid hepatotoxins Tobacco use disorder -Smoking cessation counseling provided for 3 minutes -Nicotine replacement patch offered, patient declines Methamphetamine use disorder -UDS positive for methamphetamines -Patient has known history of drug use -Encourage cessation DVT prophylaxis: Heparin CODE STATUS: Full code PDMP PDMP Reviewed: Not Reviewed Attestations 2 Medical Necessity Statement*: Patient presents with shortness of breath, found to have severe sepsis with renal failure disrupted hospitalization across 2 midnights for IV fluids, IV fluid resuscitation, cultures, and supportive care. Coding Level of Care Code Acute Code for [facility] Fwd Diagnoses Severe sepsis A41.9; R65.20 KAMALJIT (acute kidney injury) N17.9 Pneumonia J18.9 Hyponatremia E87.1 Tobacco use Z72.0 Abnormal urinalysis R82.90 History of drug abuse F19.11 Transaminitis R74.01 Hypoalbuminemia E88.09 Dehydration E86.0 Tachycardia R00.0 Leukocytosis D72.829 Thrombocytosis D75.839 Microcytic anemia D50.9 Abdominal pain R10.9
[2025-01-23 16:12] LABS: Reflex Lactate Order REFLEX LACTIC ORDERD
--- NOTE | 2025-01-23 16:51 | PC.NURSE ---
report called to [facility]; no further questions.
--- NOTE | 2025-01-23 17:07 | PHA.VACGOAL ---
Vancomycin Goal - Goal Vancomycin Goal:: 15-20 mg/L Vancomycin Indication:: Pneumonia (SEPSIS) - Therapy Current therapy:: Cefepime Day of therpy:: Day 1 of [] Actual body weight (kg): 110 lb - Data Labs: WBC 22.80 10^3/uL (3.29-11.43) H 01/23/25 14:16 RBC 3.56 10^6/uL (3.85-5.65) L 01/23/25 14:16 Hgb 9.10 g/dL (11.27-16.99) L 01/23/25 14:16 Hct 27.3 % (36-47) L 01/23/25 14:16 MCV 76.7 fl (85-98) L 01/23/25 14:16 MCH 25.6 pg (27-33) L 01/23/25 14:16 MCHC 33.3 g/dL (30-55) 01/23/25 14:16 RDW 15.6 % (12.1-15.1) H 01/23/25 14:16 Sodium 133 mmol/L (136-145) L 01/23/25 14:16 Potassium 3.8 mmol/L (3.5-5.1) 01/23/25 14:16 Chloride 93 mmol/L (98-107) L 01/23/25 14:16 Carbon Dioxide 23 mmol/L (22-29) 01/23/25 14:16 Anion Gap 20.8 (5-19) H 01/23/25 14:16 BUN 38 mg/dL (6-20) H 01/23/25 14:16 Creatinine 2.3 mg/dL (0.5-0.9) H 01/23/25 14:16 GFR Calculation 25.2 mL/min (90-130) L 01/23/25 14:16 Last dialysis session:: N/A Treatment plan:: new consult Regimen:: VANCOMYCIN 1000 MG GIVEN IN ER. GIVING A 500 MG DOSE X 1 FOR A TOTAL OF 1500 MG THE LOADING DOSE. MAINTENANCE DOSE OF 750 MG Q24H PER DOSING PROTOCOL. Follow up:: WILL CONTINUE TO MONITOR AND FOLLOW UP DAILY
[2025-01-23 17:19] LABS: Lactic Acid level (Lactate) 1.1 mmol/L (0.5-2.2)
[2025-01-23] MEDS: sodium chloride 0.9% 1,000 ML 75 ML IV (17:21)
[2025-01-23 17:35] LABS: Procalcitonin 1.46 ng/mL (0-0.5)
[2025-01-23] MEDS: cefepime 1,000 mg SDV 1000 MG IVP (17:42)
[2025-01-23] MEDS: vancomycin 500 MG in sodium chloride 0.9% (plus) 100 ML 200 MG IV (17:42)
[2025-01-23] MEDS: heparin 5,000 unit/mL INJ 1 mL 5000 UNIT SUBCUT (17:43)
[2025-01-23] MEDS: lanolin oint 7 gm 1 APPLIC TOPICAL (17:43)
[2025-01-23] MEDS: cetylpyridinium Lozenge 1 EACH MUCOUS MEM (18:38)
[2025-01-23] MEDS: morphine 4 mg/mL SDV 1 mL 2 MG IVP (19:46)
[2025-01-23 20:41] LABS: MRSA PCR OZH (swab) NOT DETECTED (Not Detecte)
[2025-01-23] MEDS: LORazepam 1 mg Tablet PO (22:41)
[2025-01-23] MEDS: metoprolol tartrate 25 mg Tablet PO (23:16)
[2025-01-23] MEDS: metoprolol tartrate 1 mg/1 mL SDV 5 mL 2.5 MG IVP (23:16)
[2025-01-24] VITALS (13 sets, daily range): BP systolic 87–105; BP diastolic 48–70; PULSE 92–130; RESP 15–22; TEMP 36.6–38.2; O2SAT 93–99
[2025-01-24] MEDS: cefepime 1,000 mg SDV 1000 MG IVP ×3 (00:46→17:39)
[2025-01-24] MEDS: ALPRAZolam 0.5 mg Tablet PO (00:46)
[2025-01-24 05:56] LABS: Basophils # 0.1 10^3/uL (0.0-0.1); Basophils % 0.3 %; Eosinophils % 0.1 %; Hematocrit 21.8 % (36-47); Lymphocytes # 1.8 10^3/uL (0.8-4.8); Lymphocytes % 10.2 %; Mean Corpuscular HGB Conc 32.6 g/dL (30-55); Mean Corpuscular Hemoglobin 25.5 pg (27-33); Mean Corpuscular Volume 78.4 fl (85-98); Mean Platelet Volume 11.3 fL (7.4-10.4); Monocytes # 0.7 10^3/uL (0.2-0.9); Monocytes % 3.8 %; Neutrophils % 84.7 %; Nucleated Red Blood Cells % 0 %; Platelet Count 364 10^3/cmm (157-399); Red Blood Count 2.78 10^6/uL (3.85-5.65); Red Cell Distribution Width 15.7 % (12.1-15.1); White Blood Count 17.59 10^3/uL (3.29-11.43)
[2025-01-24 06:15] LABS: Alanine Aminotransferase 45 U/L (0-33); Albumin Level 2.1 g/dL (3.5-5.2); Alkaline Phosphatase 105 U/L (35-105); Anion Gap 14.7 (5-19); Aspartate Amino Transferase 26 U/L (0-32); Blood Urea Nitrogen 25 mg/dL (6-20); C Reactive Protein 223.7 mg/L (0.0-4.9); Carbon Dioxide 21 mmol/L (22-29); Chloride 105 mmol/L (98-107); Globulin 3.7 g/dL (1.3-4.6); Glomerular Filtration Rate 53.5 mL/min (90-130); Glucose 95 mg/dL (65-115); Magnesium 1.9 mg/dL (1.7-2.3); Osmolality Calculated 288 mOsm/kg (285-295); Phosphorus 4.5 mg/dL (2.5-4.5); Potassium 3.7 mmol/L (3.5-5.1); Sodium 137 mmol/L (136-145); Total Bilirubin 0.4 mg/dL (0.15-1.2); Total Protein 5.8 g/dL (6.6-8.7)
--- NOTE | 2025-01-24 06:16 | PC.NURSE ---
Morning dose of heparin held due to low hemoglobin and hematocrit. Dr. Calero notified. No new orders at this time.
[2025-01-24] MEDS: sodium chloride 0.9% 1,000 ML 75 ML IV ×2 (06:20→20:08)
[2025-01-24] MEDS: acetaminophen 325 mg Tablet 650 MG PO ×2 (07:59→16:04)
[2025-01-24] MEDS: vancomycin 500 MG in sodium chloride 0.9% (plus) 100 ML 200 MG IV (07:59)
[2025-01-24] MEDS: cetylpyridinium Lozenge 1 EACH MUCOUS MEM ×2 (08:00→20:15)
[2025-01-24] MEDS: benzonatate 100 mg Capsule 200 MG PO ×2 (08:00→16:04)
[2025-01-24] MEDS: guaiFENesin 600 mg Tablet 1200 MG PO (08:00)
--- NOTE | 2025-01-24 11:36 | PM.PN ---
Subjective Subjective: Patient reports she feels slightly better today. Endorses significant pleurisy. Reports continued cough, remains mostly nonproductive. She still febrile and tachycardic. Blood pressure remains soft. Medications: Reviewed: Yes Vitals/I&O/Wt Last Vital Signs Temp 100.7 F H 01/24/25 08:00 Pulse 98 01/24/25 10:55 Resp 22 H 01/24/25 10:55 BP 105/56 01/24/25 08:31 Pulse Ox 98 01/24/25 08:00 O2 Del Method Room Air 01/24/25 08:00 01/23/25 01/24/25 01/24/25 22:59 06:59 14:59 Intake Total 1900 / 2900 1120 / 4020 100 / 100 Balance 1900 / 2900 1120 / 4020 100 / 100 Weight last 48 hrs Weight 50.757 kg Weight 49.186 kg Weight 49.895 kg Physical Exam Narrative: General: Patient is awake. Ill appearing. Head: Normocephalic. Atraumatic. EOM intact. Dry mucous membranes. Cardiovascular: No gallops. No murmurs. Tachycardic. Regular rhythm. Lungs: Persistent bilateral rhonchi. No rales or wheezing. Skin: No jaundice. No rashes. Abdomen: Normal bowel sounds, abdomen soft and nontender. Genito Urinary: Genital exam not performed since complaints not related. Rectal: Rectal exam not performed since no symptoms indicated blood loss. Extremities: No cyanosis or clubbing. Musculoskeletal: No swollen or erythematous joints. Neurological: Moves all 4 extremities. No myoclonus. Data 01/24/25 04:54 01/24/25 04:54 Micro: Microbiology 01/23/25 14:44 Bacterial Antigens - Final Urine,Voided 01/23/25 14:52 Blood Culture - Preliminary Blood SPECIMEN COLLECTED 01/23/25 14:46 Blood Culture - Preliminary Blood SPECIMEN COLLECTED A&P Assessment and plan (1) Severe sepsis: (2) KAMALJIT (acute kidney injury): (3) Pneumonia: (4) Hyponatremia: (5) Tobacco use: (6) Abnormal urinalysis: (7) History of drug abuse: (8) Transaminitis: (9) Hypoalbuminemia: (10) Dehydration: (11) Tachycardia: (12) Leukocytosis: (13) Thrombocytosis: (14) Microcytic anemia: (15) Abdominal pain: Plan Severe sepsis -Source: Bilateral community acquired pneumonia -Endorgan damage: Acute renal failure -Follow BCx -Broad-spectrum antibiotics w/ cefepime -MRSA screen negative, discontinue vancomycin Acute renal failure suspect secondary to sepsis Severe dehydration Hyponatremia/hypochloremia -Continue mIV fluids -Strict I's and O's -Daily weights -Repeat labs in AM Bilateral community-acquired pneumonia -Bacterial antigens pending -Abx as above -Guaifenesin -Sputum culture -Pulmonary toilet Microcytic anemia -Suspected MAMIE -Iron labs backordered; ferritin may be elevated in the setting of sepsis Transaminitis, improved -Suspect secondary to sepsis -Trend CMP -Avoid hepatotoxins Tobacco use disorder Methamphetamine use disorder -Would benefit from cessation Thrombocytosis, resolved DVT prophylaxis: Heparin CODE STATUS: Full code PDMP PDMP Reviewed: Not Reviewed Attestations Medical Necessity Statement*: Patient requires ongoing hospitalization for treatment of her sepsis, pneumonia, renal failure, and supportive care. Coding Level of Care Code Acute Code for [facility] Fwd Diagnoses Severe sepsis A41.9; R65.20 KAMALJIT (acute kidney injury) N17.9 Pneumonia J18.9 Hyponatremia E87.1 Tobacco use Z72.0 Abnormal urinalysis R82.90 History of drug abuse F19.11 Transaminitis R74.01 Hypoalbuminemia E88.09 Dehydration E86.0 Tachycardia R00.0 Leukocytosis D72.829 Thrombocytosis D75.839 Microcytic anemia D50.9 Abdominal pain R10.9
[2025-01-24 11:52] LABS: Ferritin 489 ng/mL (15-150); Iron 11 ug/dL (37-145); Percent Saturation 7.9 % (20-50); Total Iron Binding Capacity 138 mcg/dl; Unsaturated Iron Binding 127 ug/dL (112-347)
[2025-01-24] MEDS: morphine 4 mg/mL SDV 1 mL 2 MG IVP ×2 (14:36→20:09)
[2025-01-24] MEDS: ALPRAZolam 0.5 mg Tablet 1 MG PO (16:04)
--- NOTE | 2025-01-24 16:37 | USCV_ITS ---
Samantha Hein Age: 29 Gender: F : 1995 Exam Date: 01/24/2025 09:08 Ordering Phys: Owen Evangelista MD Technologist: Elijah Bang [place] [facility] [place]: eval for cardiomyopathy BP: 93 / 53 HR: 108 Rhythm: Sinus Technical Quality: Adequate MEASUREMENTS (Male / Female) Normal Values 2D ECHO LV Diastolic Diameter PLAX 3.5 cm 4.2 - 5.9 / 3.9 - 5.3 cm IVS Diastolic Thickness 1.2 cm 0.6 - 1.0 / 0.6 - 0.9 cm IVS Systolic Thickness 1.2 cm LVPW Diastolic Thickness 1.1 cm 0.6 - 1.0 / 0.6 - 0.9 cm LVPW Systolic Thickness 1.3 cm LVOT Diameter 2.0 cm LV Ejection Fraction 2D Teich 65.4 % LV Ejection Fraction MOD 4C 57.6 % LV Ejection Fraction MOD 2C 70.9 % LV Ejection Fraction 2C AL 72.2 % LA Diameter 3.0 cm Aorta at Sinotubular Diameter 1.6 cm IVC Diameter 1.6 cm M-MODE LA Ao Ratio MM 1.3 AV Cusp Separation MM 1.6 cm DOPPLER AV Peak Velocity 145.7 cm/s LVOT Peak Velocity 106.0 cm/s AV Area Cont Eq vti 2.8 cm squared AV Area Cont Eq pk 2.3 cm squared MV Peak Velocity 111.0 cm/s MV Area PHT 6.7 cm squared Mitral E to A Ratio 1.3 TV Peak Velocity 322.7 cm/s TR Peak Velocity 331.0 cm/s TR Peak Gradient 43.8 mmHg TR Mean Velocity 266.0 cm/s TR Mean Gradient 29.8 mmHg TR Velocity Time Integral 74.7 cm PV Peak Velocity 101.0 cm/s RV Ejection Time 0.2 s FINDINGS Left Ventricle Normal left ventricular size, systolic function and wall thickness, with no regional wall motion abnormalities. Left ventricular ejection fraction is estimated at 60 %. Normal diastolic function. Right Ventricle The right ventricle is normal in size and function. Right Atrium The right atrium is normal in size. Left Atrium The left atrium is normal in size. Mitral Valve Structurally normal mitral valve without significant stenosis or prolapse. There is no mitral regurgitation. Aortic Valve Structurally normal aortic valve without significant sclerosis or stenosis. There is trace aortic regurgitation. Tricuspid Valve Structurally normal tricuspid valve without significant stenosis or regurgitation. Pulmonary artery systolic pressure is normal. Pulmonic Valve Structurally normal pulmonic valve without significant stenosis. There is no pulmonic regurgitation. Pericardium Normal pericardium without effusion. Aorta Normal ascending aorta dimension. IVC The inferior vena cava appears normal. CONCLUSIONS Normal left ventricular size, systolic function and wall thickness, with no regional wall motion abnormalities. Left ventricular ejection fraction is estimated at 60 %. Normal diastolic function. There is no pericardial effusion. No significant valve abnormalities. Right atrial pressure is around 5 mm of mercury. Maryam Kovacs MD (Electronically Signed) Final Date: 24 January 2025 16:38 S
[2025-01-24] MEDS: trazodone 50 mg Tablet PO (21:43)
[2025-01-25] VITALS (20 sets, daily range): BP systolic 103–138; BP diastolic 56–84; PULSE 77–141; RESP 15–20; TEMP 36.4–39.6; O2SAT 93–98
[2025-01-25] MEDS: cefepime 1,000 mg SDV 1000 MG IVP ×3 (02:29→17:49)
[2025-01-25] MEDS: acetaminophen 325 mg Tablet 650 MG PO ×2 (03:49→15:06)
--- NOTE | 2025-01-25 04:22 | ECG_ITS ---
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
[2025-01-25 05:06] LABS: Basophils % 0.3 %; Eosinophils % 0.3 %; Lymphocytes # 1.4 10^3/uL (0.8-4.8); Lymphocytes % 11.5 %; Mean Corpuscular HGB Conc 33.2 g/dL (30-55); Mean Corpuscular Hemoglobin 25.5 pg (27-33); Mean Corpuscular Volume 76.8 fl (85-98); Mean Platelet Volume 10.4 fL (7.4-10.4); Monocytes # 0.7 10^3/uL (0.2-0.9); Monocytes % 5.9 %; Neutrophils # 9.57 10^3/uL (1.8-7.7); Neutrophils % 81.2 %; Nucleated Red Blood Cells % 0 %; Platelet Count 387 10^3/cmm (157-399); Red Blood Count 2.67 10^6/uL (3.85-5.65); Red Cell Distribution Width 15.7 % (12.1-15.1); White Blood Count 11.78 10^3/uL (3.29-11.43)
[2025-01-25 05:22] LABS: Hematocrit 20.5 % (36-47)
[2025-01-25 05:34] LABS: Alanine Aminotransferase 51 U/L (0-33); Albumin Level 1.8 g/dL (3.5-5.2); Alkaline Phosphatase 114 U/L (35-105); Aspartate Amino Transferase 74 U/L (0-32); Blood Urea Nitrogen 18 mg/dL (6-20); Calcium 7.7 mg/dL (8.5-10.5); Carbon Dioxide 20 mmol/L (22-29); Chloride 106 mmol/L (98-107); Creatinine Clr Calc Pharmacy 102.6415; Globulin 3.9 g/dL (1.3-4.6); Glomerular Filtration Rate 99.6 mL/min (90-130); Glucose 103 mg/dL (65-115); Magnesium 1.9 mg/dL (1.7-2.3); Osmolality Calculated 282 mOsm/kg (285-295); Phosphorus 3.2 mg/dL (2.5-4.5); Sodium 135 mmol/L (136-145); Total Bilirubin 0.4 mg/dL (0.15-1.2); Total Protein 5.7 g/dL (6.6-8.7)
[2025-01-25 07:35] LABS: Adenovirus Not Detected (NOT DETECT); Chlamydia Pneumoniae Not Detected (NOT DETECT); Coronavirus 229E,HKU1,NL63,OC4 Not Detected (NOT DETECT); Human Metapneumovirus Not Detected (NOT DETECT); Human Rhinovirus/Enterovirus Not Detected (NOT DETECT); Influenza A Not Detected (NOT DETECT); Influenza A H1 Not Detected (NOT DETECT); Influenza A H1-2009 Not Detected (NOT DETECT); Influenza A H3 Not Detected (NOT DETECT); Influenza B Not Detected (NOT DETECT); Mycoplasma Pneumoniae Not Detected (NOT DETECT); Parainfluenza Virus Type 1 Not Detected (NOT DETECT); Parainfluenza Virus Type 2 Not Detected (NOT DETECT); Parainfluenza Virus Type 3 Not Detected (NOT DETECT); Parainfluenza Virus Type 4 Not Detected (NOT DETECT); Respiratory Syncytial Virus A Not Detected (NOT DETECT); Respiratory Syncytial Virus B Not Detected (NOT DETECT); SARS-COV-2 Not Detected (NOT DETECT)
[2025-01-25] MEDS: sodium chloride 0.9% 1,000 ML 75 ML IV (08:28)
--- NOTE | 2025-01-25 09:48 | PC.CHAP ---
Pastoral Care Encounter/Spiritual Assessment Type of Contact [] Declined dental officer visit [] Patient/Family/Request visit [] Outpatient visit [] Follow-up visit [] Physician referral [] Code/Alert [x] Routine visit [] Staff referral [] Actively dying [] Patient sleeping [] Family support [] [] Out of room [] Palliative care [] [] Receiving care in room [] Pre-surgical visit [] Trauma [] Long length of stay [] ICU visit [] Other: Relational/Emotional Strength [] Patient feels connected with others/family/visitors/staff [] Distress [] Loneliness/isolation [] Abandonment Spirituality of Patient [] Person of Melinda [] Attends Scientologist of their Melinda [] Believes in Prayer [] Reads Bible or Evangelical materials [] There are Spiritual issues to be addressed Attendant Arcade Interventions [x] Prayer [] Active listening [] Non-anxious presence [] Spiritual/emotional support [] Crisis/trauma care [] Spiritual counseling [] Bereavement support [] Provided bereavement packet [] Provided Bible/devotional materials [] Provided toy/stuffed animal, coloring book to patient or family member [] Provided Communion [] Anointing/[place] [] Salvation [] Completed spiritual assessment [] Other: Impact on Illness or Injury [] Angry [] Fearful [] Anxious [] Often cries [] Exhaustion [] Unable to work [] Unable to attend episcopal [] Unable to walk/stand [] Unable to read [] Unable to drive [] Unable to eat/drink [] Unable to sleep [] Unable to be with family [] Patient intubated [] Other: Summary precaution Time spent with patient
[2025-01-25] MEDS: ALPRAZolam 0.5 mg Tablet 1 MG PO ×2 (10:37→16:19)
[2025-01-25] MEDS: morphine 4 mg/mL SDV 1 mL 2 MG IVP ×2 (10:37→15:00)
--- NOTE | 2025-01-25 13:57 | P.PN_ITS ---
Subjective 2 Subjective: seen this morning hb 6.1 this am complains of pain in chest and back everytime she breaths reports lightheadedness when she gets up Vitals/I&O/Wt Last Vital Signs Temp 97.6 F 01/25/25 13:19 Pulse 110 H 01/25/25 13:19 Resp 18 01/25/25 13:19 BP 116/80 01/25/25 13:19 Pulse Ox 97 01/25/25 13:19 O2 Del Method Room Air 01/25/25 10:27 01/24/25 01/25/25 01/25/25 22:59 06:59 14:59 Intake Total 1120 / 1340 240 / 1580 1025 / 1025 Balance 1120 / 1340 240 / 1580 1025 / 1025 Weight last 48 hrs Weight 50.349 kg Weight 50.757 kg Weight 49.186 kg Weight 49.895 kg Physical Exam 2 Narrative: General: Patient is awake. Ill appearing. Head: Normocephalic. Atraumatic. EOM intact. Dry mucous membranes. Cardiovascular: No gallops. No murmurs. Tachycardic. Regular rhythm. Lungs: Persistent bilateral rhonchi. No rales or wheezing. Abdomen: Normal bowel sounds, abdomen soft and nontender. Extremities: No cyanosis or clubbing. Data 01/25/25 04:47 01/25/25 04:47 Micro: Microbiology 01/23/25 14:52 Blood Culture - Preliminary Blood NEGATIVE TO DATE 01/23/25 14:46 Blood Culture - Preliminary Blood NEGATIVE TO DATE A&P Assessment and plan (1) Severe sepsis: (2) KAMALJIT (acute kidney injury): (3) Pneumonia: (4) Hyponatremia: (5) Tobacco use: (6) Abnormal urinalysis: (7) History of drug abuse: (8) Transaminitis: (9) Hypoalbuminemia: (10) Dehydration: (11) Tachycardia: (12) Leukocytosis: (13) Thrombocytosis: (14) Microcytic anemia: (15) Abdominal pain: Plan Severe sepsis -Source: Bilateral community acquired pneumonia -Endorgan damage: Acute renal failure -Follow BCx -Broad-spectrum antibiotics w/ cefepime -MRSA screen negative, discontinue vancomycin Acute renal failure suspect secondary to sepsis Severe dehydration Hyponatremia/hypochloremia -Continue mIV fluids -Strict I's and O's -Daily weights -Repeat labs in AM Bilateral community-acquired pneumonia -Bacterial antigens pending -Abx as above -Guaifenesin -Sputum culture -Pulmonary toilet Microcytic anemia -Suspected MAMIE -Iron labs backordered; ferritin may be elevated in the setting of sepsis Transaminitis, improved -Suspect secondary to sepsis -Trend CMP -Avoid hepatotoxins Tobacco use disorder Methamphetamine use disorder -Would benefit from cessation Thrombocytosis, resolved DVT prophylaxis: Heparin CODE STATUS: Full code 01/25/2025 order 2 units prbc recheck cbc 2 hours post transfusion continue abx and steroids at this time continue IV fluids pt appears quite ill follow cultures will likely require 2-3 more days of hospitalization repeat chest xray today PDMP PDMP Reviewed: Not Reviewed Attestations 2 Medical Necessity Statement*: Patient requires ongoing hospitalization for treatment of her sepsis, pneumonia, renal failure, and supportive care. Coding Level of Care Code Acute Code for [employer] Diagnoses Severe sepsis A41.9; R65.20 KAMALJIT (acute kidney injury) N17.9 Pneumonia J18.9 Hyponatremia E87.1 Tobacco use Z72.0 Abnormal urinalysis R82.90 History of drug abuse F19.11 Transaminitis R74.01 Hypoalbuminemia E88.09 Dehydration E86.0 Tachycardia R00.0 Leukocytosis D72.829 Thrombocytosis D75.839 Microcytic anemia D50.9 Abdominal pain R10.9
--- NOTE | 2025-01-25 14:01 | XRR_ITS ---
PROCEDURE INFORMATION: Exam: XR Chest Exam date and time: 01/25/2025 10:00 PM Age: 29 years old Clinical indication: Shortness of breath; Additional info: Pleural effusion TECHNIQUE: Imaging protocol: Radiologic exam of the chest. Views: 1 view. COMPARISON: CT chest con [id number] 01/25/2025 9:58 PM FINDINGS: Lungs: Bilateral left greater than right mid to lower lung field airspace infiltrates. Pleural spaces: Small right and large left pleural effusions. Heart/Mediastinum: Unremarkable. No cardiomegaly. Bones/joints: Unremarkable. XR/XR chest 1V portable [id number] IMPRESSION: 1. Small right and large left pleural effusions. 2. Bilateral left greater than right mid to lower lung field airspace infiltrates.
[2025-01-25] MEDS: ketorolac 30 mg/mL INJ 15 MG IVP (16:19)
--- NOTE | 2025-01-25 16:29 | CTR_ITS ---
PROCEDURE INFORMATION: Exam: CT Chest Without Contrast; Diagnostic Exam date and time: 01/25/2025 9:58 PM Age: 29 years old Clinical indication: Shortness of breath; Additional info: Pneumonia, persistent fever TECHNIQUE: Imaging protocol: Diagnostic computed tomography of the chest without contrast. Radiation optimization: All CT scans at this facility use at least one of these dose optimization techniques: automated exposure control; mA and/or kV adjustment per patient size (includes targeted exams where dose is matched to clinical indication); or iterative reconstruction. COMPARISON: CR (CHEST, ) 01/23/2025 3:20 PM RADIATION DOSE METRICS: Total DLP (mGy-cm): 221.44 FINDINGS: Lungs: Emphysematous changes. Bilateral okan-uimfbbr-ckmm-right partially dependent lower lobe airspace infiltrates. Pleural spaces: Moderate right and moderate to large left pleural effusion, the effusion on the left appears somewhat loculated. Heart: Unremarkable. No cardiomegaly. No pericardial effusion. Negative for coronary artery atherosclerotic calcifications. Lymph nodes: Unremarkable. No enlarged lymph nodes. Vasculature: Unremarkable. No aortic aneurysm. Bones/joints: Unremarkable. No acute fracture. Soft tissues: Unremarkable. CT/CT chest wo con [id number] IMPRESSION: 1. Moderate right and moderate to large left pleural effusion, the effusion on the left appears somewhat loculated. 2. Emphysematous changes. 3. Bilateral yhql-mzjhcdj-lshu-right partially dependent lower lobe airspace infiltrates. Short-term 1 month follow-up exam is advised to assess for resolution and exclude underlying mass.
[2025-01-25] MEDS: VANCOMYCIN ADD-Vantage 750 MG in 0.9% NaCl ADD-Vantage 250 ML 250 MG IV (17:50)
[2025-01-25 20:19] LABS: Chlamydia Trachomatis NOT DETECTED; Neisseria Gonorrhea NOT DETECTED
[2025-01-25 20:27] LABS: Hematocrit 32.5 % (36-47)
[2025-01-25] MEDS: benzonatate 100 mg Capsule 200 MG PO (20:36)
[2025-01-25] MEDS: trazodone 50 mg Tablet PO (20:36)
[2025-01-25] MEDS: TRAMadol 50 mg Tablet PO (21:16)
[2025-01-25 23:55] LABS: Acinetobacter baumannii Not Detected (NOT DETECT); Bacteroides fragilis Not Detected (NOT DETECT); Citrobacter Not Detected (NOT DETECT); Cronobacter sakazakii Not Detected (NOT DETECT); Enterobacter cloacae complex Not Detected (NOT DETECT); Enterobacter non cloacae Not Detected (NOT DETECT); Fusobacterium necrophorum Not Detected (NOT DETECT); Fusobacterium nucleatum Not Detected (NOT DETECT); Haemophilus influenzae Not Detected (NOT DETECT); Klebsiella pneumoniae group Not Detected (NOT DETECT); Morganella morganii Not Detected (NOT DETECT); Neisseria meningitidis Not Detected (NOT DETECT); Pan Candida Not Detected (NOT DETECT); Pan Gram-Positive Not Detected (NOT DETECT); Proteus mirabilis Not Detected (NOT DETECT); Pseudomonas aeruginosa Not Detected (NOT DETECT); Salmonella Not Detected (NOT DETECT); Serratia Not Detected (NOT DETECT); Serratia marcescens Not Detected (NOT DETECT); Stenotrophomonas maltophilia Not Detected (NOT DETECT)
[2025-01-26] VITALS (12 sets, daily range): BP systolic 99–132; BP diastolic 67–82; PULSE 93–134; RESP 15–24; TEMP 36.4–36.8; O2SAT 86–98
[2025-01-26] MEDS: cefepime 1,000 mg SDV 1000 MG IVP ×2 (02:26→10:25)
[2025-01-26] MEDS: TRAMadol 50 mg Tablet PO ×2 (02:33→15:53)
[2025-01-26] MEDS: ALPRAZolam 0.5 mg Tablet 1 MG PO ×2 (02:33→15:53)
[2025-01-26] MEDS: VANCOMYCIN ADD-Vantage 750 MG in 0.9% NaCl ADD-Vantage 250 ML 250 MG IV ×2 (02:34→10:26)
--- NOTE | 2025-01-26 04:09 | PC.NURSE ---
Patient's heart rate maintaining 130s, sinus tachycardia, blood pressure 123/76. Dr. Calero notified and notified that heart rate with in the 70s earlier in the shift. 2.5 mg IV Metoprolol x1 ordered.
[2025-01-26] MEDS: acetaminophen 325 mg Tablet 650 MG PO (04:30)
[2025-01-26] MEDS: metoprolol tartrate 1 mg/1 mL SDV 5 mL 2.5 MG IVP ×2 (04:30→06:19)
[2025-01-26] MEDS: heparin 5,000 unit/mL INJ 1 mL 5000 UNIT SUBCUT (04:30)
[2025-01-26] MEDS: benzonatate 100 mg Capsule 200 MG PO (04:31)
--- NOTE | 2025-01-26 06:08 | PC.NURSE ---
Dr. Calero notified that heart rate came down to 110-120s after receiving IV Metoprolol, but is now back up to 130s. Ordered to give 1 liters NS bolus, another dose of 2.5 mg IV Metoprolol, and another drug screen.
[2025-01-26 06:13] LABS: Basophils # 0.1 10^3/uL (0.0-0.1); Basophils % 0.5 %; Eosinophils # 0.1 10^3/uL (0.0-0.8); Eosinophils % 0.7 %; Hematocrit 31.3 % (36-47); Lymphocytes # 1.4 10^3/uL (0.8-4.8); Lymphocytes % 12.8 %; Mean Corpuscular HGB Conc 33.2 g/dL (30-55); Mean Corpuscular Hemoglobin 26.6 pg (27-33); Mean Corpuscular Volume 80.1 fl (85-98); Mean Platelet Volume 10.3 fL (7.4-10.4); Monocytes # 0.7 10^3/uL (0.2-0.9); Monocytes % 6.3 %; Neutrophils # 8.58 10^3/uL (1.8-7.7); Neutrophils % 78.5 %; Nucleated Red Blood Cells % 0 %; Platelet Count 345 10^3/cmm (157-399); Red Blood Count 3.91 10^6/uL (3.85-5.65); Red Cell Distribution Width 15.5 % (12.1-15.1); White Blood Count 10.93 10^3/uL (3.29-11.43)
[2025-01-26] MEDS: sodium chloride 0.9% 1,000 ML 999 ML IV (06:19)
[2025-01-26 06:34] LABS: Alanine Aminotransferase 57 U/L (0-33); Albumin Level 1.9 g/dL (3.5-5.2); Alkaline Phosphatase 91 U/L (35-105); Anion Gap 13.5 (5-19); Aspartate Amino Transferase 67 U/L (0-32); Blood Urea Nitrogen 16 mg/dL (6-20); Calcium 7.8 mg/dL (8.5-10.5); Carbon Dioxide 21 mmol/L (22-29); Chloride 105 mmol/L (98-107); Creatinine Clr Calc Pharmacy 119.7484; Globulin 4.2 g/dL (1.3-4.6); Glucose 105 mg/dL (65-115); Magnesium 1.7 mg/dL (1.7-2.3); Osmolality Calculated 282 mOsm/kg (285-295); Potassium 4.5 mmol/L (3.5-5.1); Sodium 135 mmol/L (136-145); Total Bilirubin 0.3 mg/dL (0.15-1.2); Total Protein 6.1 g/dL (6.6-8.7)
[2025-01-26 06:44] LABS: D Dimer 7.65 ug/mLFEU (0-0.59)
--- NOTE | 2025-01-26 08:17 | XRR_ITS ---
PROCEDURE INFORMATION: Exam: XR Chest Exam date and time: 01/26/2025 7:27 AM Age: 29 years old Clinical indication: Shortness of breath; Additional info: Low sats TECHNIQUE: Imaging protocol: Radiologic exam of the chest. Views: 1 view. Total images: 3 COMPARISON: CR (CHEST, ) 01/25/2025 10:00 PM FINDINGS: Lungs: Stable left pleuroparenchymal disease. Interval worsening of right pleuroparenchymal disease. Incidental azygos fissure of the right upper lobe is present. Pleural spaces: No pneumothorax. No pneumothorax. Heart/Mediastinum: Heart size is stable when compared to the prior exam. Bones/joints: Osseous structures are unchanged from the prior exam. XR/XR chest 1V portable [id number] IMPRESSION: 1. Stable left pleuroparenchymal disease. 2. Interval worsening of right pleuroparenchymal disease.
--- NOTE | 2025-01-26 08:18 | ECG_ITS ---
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 Measurements Intervals [place] Rate: 117 P: 60 AR: 114 QRS: 55 QRSD: 81 T: 26 QT: 308 QTc: 430 Interpretive Statements SINUS TACHYCARDIA WITH SHORT AR INTERVAL LOW QRS VOLTAGE IN PRECORDIAL LEADS [QRS DEFLECTION < 1.0 mV IN CHEST LEADS] POSSIBLE RIGHT VENTRICULAR CONDUCTION DELAY [RSR (QR) IN V1/V2] ABNORMAL RHYTHM ECG Compared to ECG 01/25/2025 04:25:42 Short AR interval now present Low QRS voltage now present T-wave abnormality no longer present Electronically Signed On 01-26-2025 19:27:19 CDT by Josh Woody M.D. [email or web address] [id number]
--- NOTE | 2025-01-26 08:35 | CT_ITS ---
WS: [id number] CT CHEST ANGIOGRAPHY WITH REFORMATS HISTORY: d-dimer 7.64. suspect PE TECHNIQUE: Contiguous axial images are obtained through the chest during arterial injection of intravenous contrast. Images are reconstructed to evaluate the pulmonary arteries. MIP imaging also reviewed. All CT scans at [facility] use at least one of these dose optimization techniques: automated exposure control; mA and/or kV adjustment per patient size (includes targeted exams where dose is matched to clinical indication); or iterative reconstruction. CONTRAST: Omnipaque 350; 100 mL IV. DLP: 161.98 mGy.cm COMPARISON: 01/25/[address] Very good opacification of the pulmonary arteries. There is significant artifact from the contrast injection obscuring the proximal RIGHT pulmonary artery. Filling defect with near complete occlusion involving a segmental branch of the LEFT lower lobe. Normal size aorta. Pulmonary artery is slightly larger than the aorta suggesting pulmonary hypertension. Mild RIGHT heart enlargement. Mild RIGHT heart strain. There is a filling defect within the LEFT atrial appendage. Very small pericardial effusion. Small layering RIGHT pleural effusion. Multi loculated moderate to large LEFT pleural effusion. There are multiple loculated components with mild associated pleural enhancement throughout the LEFT thorax. These loculations extending from the apex inferiorly along the medial LEFT lower lobe. Dense area of consolidation RIGHT lower lobe. There are a few small nodules also in the RIGHT lower lobe. Hazy dense opacification in the LEFT lower lobe encased by the loculated effusion. There is hazy groundglass attenuation with irregular areas of consolidation in the LEFT lower lobe. Prominent mediastinal and hilar lymphoid tissue. Soft tissue anasarca. Only a small portion of the upper abdomen is included. The liver does appear to be be enlarged and edematous. Consider hepatic venous congestion. Adrenal glands are not very well visualized. No osseous abnormalities. CT/CT angio chest PE protcl [id number] IMPRESSION: 1. Near occlusion pulmonary embolism segmental branch of the LEFT lower lobe p ulmonary artery. 2. No central pulmonary embolism but there is significant artifact through the proximal RIGHT main pulmonary artery. 3. Extensive multiloculated LEFT pleural effusion with pleural enhancement. Em pyema cannot be excluded on this appearance. 4. Small layering RIGHT pleural effusion. 5. Bilateral lower lobe areas of dense consolidation and groundglass attenuati on as described above. Most consistent with pneumonia. Recommend follow-up to [facility]. 6. RIGHT heart strain. 7. Filling defect in the LEFT ventricular apex. May be at mixing of blood with contrast. Thrombus not excluded. 8. Mildly dilated pulmonary artery.
--- NOTE | 2025-01-26 08:43 | PC.NURSE ---
notified Dr. Canchola patient O2 sats 87% per respiratory and patient stated chest hurt. Patient put on 2L O2, Dr. Canchola ordered EKG and Stat CXR
[2025-01-26] MEDS: iohexol 350 mg/mL 500 mL Btl (per mL) IV (09:21)
--- NOTE | 2025-01-26 09:57 | USCV_ITS ---
Samantha Hein Age: 29 Gender: F : 1995 Exam Date: 01/26/2025 10:42 Ordering Phys: Irena Canchola MD Technologist: Exam Location: [facility] – [place] Indication: rv thrombus BP: / HR: Rhythm: Sinus Technical Quality: Adequate MEASUREMENTS (Male / Female) Normal Values 2D ECHO LV Diastolic Diameter PLAX 3.3 cm 4.2 - 5.9 / 3.9 - 5.3 cm IVS Diastolic Thickness 0.9 cm 0.6 - 1.0 / 0.6 - 0.9 cm IVS Systolic Thickness 0.9 cm LVPW Diastolic Thickness 1.0 cm 0.6 - 1.0 / 0.6 - 0.9 cm LVPW Systolic Thickness 1.3 cm LVOT Diameter 1.4 cm LV Ejection Fraction 2D Teich 47.3 % LV Ejection Fraction MOD 4C 44.6 % LV Ejection Fraction MOD 2C 46.7 % LV Ejection Fraction 2C AL 45.5 % LA Diameter 2.1 cm RA Systolic Volume 4C AL 29.4 ml RA Systolic Volume 4C MOD 27.6 ml Aorta at Sinotubular Diameter 1.9 cm M-MODE LA Ao Ratio MM 1.3 AV Cusp Separation MM 2.5 cm FINDINGS Left Ventricle Diffuse hypokinesia else of the septum and the anteroseptal segment. LV ejection fraction of around 45% Right Ventricle Normal size and possibly normal ejection fraction Right Atrium Mildly dilated Left Atrium Possibly of normal size Mitral Valve No gross abnormality noted Aortic Valve Minimally thickened . Tricuspid Valve Mobile echodensity on the atrial side of the tricuspid valve mostly on the septal leaflet Pulmonic Valve Not visualized Pericardium No pericardial effusion. Aorta Normal aortic annulus size. IVC Inferior vena cava not visualized. CONCLUSIONS Normal LV size with a slightly diminished ejection fraction of 45%. Wall motion abnormalities as mentioned above. Mobile echodensity on the atrial side of the tricuspid valve mostly on the septal leaflet. This may suggest a vegetation Minimally thickened aortic valve No pericardial effusion Consider DENISHA to better evaluate the tricuspid valve lesion Compared to the previous study on 01/24/2025, there may not be a significant change Dr Josh Woody MD [facility] (Electronically Signed) Final Date: 27 January 2025 00:56 S
--- NOTE | 2025-01-26 10:04 | PC.CHAP ---
Pastoral Care Encounter/Spiritual Assessment Type of Contact [] Declined rejector visit [] Patient/Family/Request visit [] Outpatient visit [] Follow-up visit [] Physician referral [] Code/Alert [] Routine visit [] Staff referral [] Actively dying [] Patient sleeping [] Family support [] [] Out of room [] Palliative care [] [] Receiving care in room [] Pre-surgical visit [] Trauma [] Long length of stay [] ICU visit [x] Other:Contact precautions. No visit. Relational/Emotional Strength [] Patient feels connected with others/family/visitors/staff [] Distress [] Loneliness/isolation [] Abandonment Spirituality of Patient [] Person of Melinda [] Attends Lutheran of their Melinda [] Believes in Prayer [] Reads Bible or Latter Day materials [] There are Spiritual issues to be addressed Biomedical Service Engineer Interventions [] Prayer [] Active listening [] Non-anxious presence [] Spiritual/emotional support [] Crisis/trauma care [] Spiritual counseling [] Bereavement support [] Provided bereavement packet [] Provided Bible/devotional materials [] Provided toy/stuffed animal, coloring book to patient or family member [] Provided Communion [] Anointing/[place] [] Salvation [] Completed spiritual assessment [] Other: Impact on Illness or Injury [] Angry [] Fearful [] Anxious [] Often cries [] Exhaustion [] Unable to work [] Unable to attend scientologist [] Unable to walk/stand [] Unable to read [] Unable to drive [] Unable to eat/drink [] Unable to sleep [] Unable to be with family [] Patient intubated [] Other: Summary Time spent with patient
[2025-01-26] MEDS: levofloxacin-dextrose 5 % 500 MG/100 ML PREMIX 100 MG IV (10:24)
[2025-01-26] MEDS: sodium chloride 0.9% 1,000 ML 75 ML IV (10:27)
[2025-01-26] MEDS: heparin 5,000 unit/mL INJ 1 mL IVP (11:58)
[2025-01-26] MEDS: heparin drip 25,000 UNIT/500 ML PREMIX 15 UNIT IV (12:11)
--- NOTE | 2025-01-26 14:06 | P.TS_ITS ---
Transfer Summary Providers Date of Admission: 01/23/25 15:58 Date of Discharge/Transfer: 01/26/25 Attending Provider at Admission: Owen Evangelista MD Attending Provider at Transfer: Irena Canchola MD Transfer Plans: Anticipated date of transfer: 01/26/25 . Diagnoses at Discharge Discharge Diagnosis (1) Severe sepsis: Status: Acute (2) KAMALJIT (acute kidney injury): Status: Acute (3) Pneumonia: Status: Acute (4) Hyponatremia: Status: Acute (5) Tobacco use: Status: Acute (6) Abnormal urinalysis: Status: Acute (7) History of drug abuse: Status: Acute (8) Transaminitis: Status: Acute (9) Hypoalbuminemia: Status: Acute (10) Dehydration: Status: Acute (11) Tachycardia: Status: Acute (12) Leukocytosis: Status: Acute (13) Thrombocytosis: Status: Acute (14) Microcytic anemia: Status: Acute (15) Abdominal pain: Status: Acute Reason for Visit Reason for Visit abd pain Brief History: Samantha Hein is a 29 year old female with a past medical history significant for tobacco use disorder and methamphetamine use disorder who presents emergency department with shortness of breath x 1 week. Reports exertion worsens symptoms. Rest improves. Endorses associated cough which she describes as mostly nonproductive. Endorses associated fevers, chills, malaise and fatigue. Denies chest pains. In the emergency department, she was found to have low-grade fever with significant tachycardia. Blood pressure soft. Labs revealed severe leukocytosis, thrombocytosis, and renal failure. Imaging revealed multifocal p neumonia. Hospital Course Hospital Course Patient was admitted to the hospital for severe sepsis secondary to bilateral community-acquired pneumonia and had severe KAMALJIT with creatinine 2.8 on admission. She also had thrombocytosis transaminitis and was positive for methamphetamine. She has a known history of drug use. She was placed on IV cefepime initially and subsequently the next day did feel slightly better however endorse significant pleurisy. She had a nonproductive cough and was febrile and tachycardic. Subsequently had a persistent fever with highest reading of 103.2. IV vancomycin was added 01/25 and subsequently IV levofloxacin added for dual pseudomonal coverage 01/26. Patient does have 2 out of 4 bottles positive blood culture gram-negative coccobacilli. Sensitivity and speciation is pending at this time. She did develop hypoxia and tachycardia during morning hours of 01/26 for which D-dimer was obtained and resulted elevated at 7.65. CTA chest was pursued thereafter and showed 1. Near occlusion pulmonary embolism segmental branch of the LEFT lower lobe pulmonary artery. 2. No central pulmonary embolism but there is significant artifact through the proximal RIGHT main pulmonary artery. 3. Extensive multiloculated LEFT pleural effusion with pleural enhancement. Empyema cannot be excluded on this appearance. 4. Small layering RIGHT pleural effusion. 5. Bilateral lower lobe areas of dense consolidation and groundglass attenuation as described above. Most consistent with pneumonia. Recommend follow-up to resolution. 6. RIGHT heart strain. 7. Filling defect in the LEFT ventricular apex. May be at mixing of blood with contrast. Thrombus not excluded. 8. Mildly dilated pulmonary artery. Had a detailed discussion with radiologist over the phone. Patient may require more than 1 chest tube for multiloculated pleural effusion and empyema cannot be excluded at this time. Patient will need CT surgery and pulmonology evaluation going forward. Secondary to pulmonary embolism and right heart strain another echo has been ordered to evaluate for that. It is pending at this time. There is also a filling defect in left ventricular apex, thrombus not excluded. Heparin drip has been started. With blood cultures positive on there is a possibility of this being a vegetation as well however secondary to hypoxia, tachycardia, pulmonary embolism benefit of heparin is greater at this time and therefore it has been started. We will check serial CBCs every 8 hours. Possibility of iron deficiency anemia present. Percent saturation low, iron level 11. Ferritin 300 range most likely secondary to sepsis. Patient did receive 2 units of packed RBC on 01/25. Subsequent hemoglobin 10.9 and this morning 10.4. There has been no clinical evidence of hematochezia hemoptysis or hematemesis at this time. Hemoglobin at admission 9.1 and steadily did drop to 6.8. Possible dilutional component?. Repeat blood cultures were obtained 01/25 and so far have not shown any growth. Given patient's overall clinical picture, bacteremia, high clinical suspicion of empyema, history of drug use warrants further investigation and at the very least consultation with CT surgery and pulmonology. Both the services are not available at [facility] at this time. Had a discussion with patient and will be transferring her to higher level of care. Patient has been accepted for transfer at [facility] by ,. Of note: Patient does not want us to discuss her care with her family. She stated to me this morning she will make her decisions herself. Quite a few hours were spent on obtaining acceptance for transfer ([facility], [facility], [facility], [facility],). I called several facilities several which were on divert, some did not have a bed available, finally she was accepted at [facility] however later denied secondary to insurance. She was eventually accepted to [facility] in [place]. We will be transferring patient via ground ambulance at this time as vitals are stable however if she does deteriorate or worsens clinically by the time of transfer air ambulance might be used. [facility] aware of the above. Physical Exam Narrative: General: Patient is awake however appears deconditioned and toxically ill. She is quite slow to respond however is awake and alert. Currently on 2 L nasal cannula saturating 92%. Seen at the bedside with nursing staff present. Head: Normocephalic. Atraumatic. EOM intact. Slightly dry mucous membranes. Is running continuous IV fluids at this time. Cardiovascular: Normal S1-S2, no gross murmurs appreciated at this time. Lungs: Persistent bilateral rhonchi. No rales or wheezing. Breath sounds diminished at both bases. Abdomen: Normal bowel sounds, abdomen soft and nontender. Extremities: No cyanosis or clubbing. TS Data Studies Completed and Pending Pending at discharge Category Date Time Status Blood Culture Stat Lab 01/23/25 14:52 Results Blood Culture Stat Lab 01/25/25 21:05 Results Complete Blood Count w/Auto AM LABS Lab 01/27/25 04:00 Ordered Comprehensive Metabolic Panel AM LABS Lab 01/27/25 04:00 Ordered Drug Screen Serum [Serum Drug Panel 7] Routine Lab 01/26/25 08:16 Received Magnesium AM LABS Lab 01/27/25 04:00 Ordered Occult Blood Stool [Immunochemical Fecal OCB] Routine Lab 01/26/25 08:44 Unc ollected PTT [Partial Thromboplastin Time] Stat Lab 01/26/25 18:15 Ordered Platelet Count Q2D Lab 01/28/25 04:00 Ordered Platelet Count Q2D Lab 01/30/25 04:00 Ordered Sputum Culture and Gram Stain Stat Lab 01/25/25 16:30 Uncollected Urine Culture Stat Lab 01/25/25 17:00 Results Vancomycin Trough Timed Lab 01/26/25 16:30 Ordered CV. echo limited [id number] Stat Ultrasound 01/26/25 09:57 Taken Completed Studies During Hospitalization Category Date Time Status CT abdomen pelvis w con* [id number] Stat Cat Scan 01/23/25 14:[address] chest wo con [id number] Stat Cat Scan 01/25/25 16:29 Completed CTA chest [CT angio chest PE protcl 92060] Stat Cat Scan 01/26/25 08:35 Completed CXRP [XR chest 1V portable [id number]] Stat Exams 01/23/25 14:36 Completed XR chest 1V portable [id number] Routine Exams 01/25/25 14:01 Completed XR chest 1V portable [id number] Stat Exams 01/26/25 08:17 Completed CV. echo complete* [id number] Stat Ultrasound 01/24/25 16:37 Completed Laboratory Last Values WBC 10.93 10^3/uL (3.29-11.43) 01/26/25 04:50 RBC 3.91 10^6/uL (3.85-5.65) 01/26/25 04:50 Hgb 10.40 g/dL (11.27-16.99) L 01/26/25 04:50 Hct 31.3 % (36-47) L 01/26/25 04:50 MCV 80.1 fl (85-98) L 01/26/25 04:50 MCH 26.6 pg (27-33) L 01/26/25 04:50 MCHC 33.2 g/dL (30-55) 01/26/25 04:50 RDW 15.5 % (12.1-15.1) H 01/26/25 04:50 Plt Count 345 10^3/cmm (157-399) 01/26/25 04:50 MPV 10.3 fL (7.4-10.4) 01/26/25 04:50 Neut % (Auto) 78.5 % 01/26/25 04:50 Lymph % (Auto) 12.8 % 01/26/25 04:50 [place] % (Auto) 6.3 % 01/26/25 04:50 Eos % (Auto) 0.7 % 01/26/25 04:50 Baso % (Auto) 0.5 % 01/26/25 04:50 Neut # (Auto) 8.58 10^3/uL (1.8-7.7) H 01/26/25 04:50 Lymph # (Auto) 1.4 10^3/uL (0.8-4.8) 01/26/25 04:50 [place] # (Auto) 0.7 10^3/uL (0.2-0.9) 01/26/25 04:50 Eos # (Auto) 0.1 10^3/uL (0.0-0.8) 01/26/25 04:50 Baso # (Auto) 0.1 10^3/uL (0.0-0.1) 01/26/25 04:50 Nucleated RBC % (auto) 0 % 01/26/25 04:50 Nucleated RBCs # 0.0 /100WBC 01/26/25 04:50 D-Dimer 7.65 ug/mLFEU (0-0.59) H 01/26/25 04:50 Sodium 135 mmol/L (136-145) L 01/26/25 04:50 Potassium 4.5 mmol/L (3.5-5.1) 01/26/25 04:50 Chloride 105 mmol/L (98-107) 01/26/25 04:50 Carbon Dioxide 21 mmol/L (22-29) L 01/26/25 04:50 Anion Gap 13.5 (5-19) 01/26/25 04:50 BUN 16 mg/dL (6-20) 01/26/25 04:50 Creatinine 0.6 mg/dL (0.5-0.9) 01/26/25 04:50 GFR Calculation 119.0 mL/min (90-130) 01/26/25 04:50 Glucose 105 mg/dL (65-115) 01/26/25 04:50 Calculated Osmolality 282 mOsm/kg (285-295) L 01/26/25 04:50 Lactic Acid 2.1 mmol/L (0.5-2.2) 01/23/25 14:16 Lactic Acid (Sepsis) 1.1 mmol/L (0.5-2.2) 01/23/25 16:54 Calcium 7.8 mg/dL (8.5-10.5) L 01/26/25 04:50 Phosphorus 3.2 mg/dL (2.5-4.5) 01/25/25 04:47 Magnesium 1.7 mg/dL (1.7-2.3) 01/26/25 04:50 Iron 11 ug/dL (37-145) L 01/24/25 04:54 TIBC 138 mcg/dl 01/24/25 04:54 % Saturation 7.9 % (20-50) L 01/24/25 04:54 Unsat Iron Binding 127 ug/dL (112-347) 01/24/25 04:54 Ferritin 489 ng/mL (15-150) H 01/24/25 04:54 Total Bilirubin 0.3 mg/dL (0.15-1.2) 01/26/25 04:50 AST 67 U/L (0-32) H 01/26/25 04:50 ALT 57 U/L (0-33) H 01/26/25 04:50 Alkaline Phosphatase 91 U/L (35-105) 01/26/25 04:50 C-Reactive Protein 223.7 mg/L (0.0-4.9) H 01/24/25 04:54 Total Protein 6.1 g/dL (6.6-8.7) L 01/26/25 04:50 Albumin 1.9 g/dL (3.5-5.2) L 01/26/25 04:50 Globulin 4.2 g/dL (1.3-4.6) 01/26/25 04:50 Lipase 12 U/L (13-60) L 01/23/25 14:16 Procalcitonin 1.46 ng/mL (0-0.5) H 01/23/25 16:54 Urine Color Dark yellow (Yellow) A 01/23/25 14:44 Urine Appearance Turbid (CLEAR) A 01/23/25 14:44 Urine pH 5.0 (5-7) 01/23/25 14:44 Ur Specific [place] 1.018 (1.005-1.030) 01/23/25 14:44 Urine Protein 2+ (Negative) A 01/23/25 14:44 Urine Glucose (UA) Trace (Normal) H 01/23/25 14:44 Urine Ketones Trace (Negative) 01/23/25 14:44 Urine Blood Trace (Negative) A 01/23/25 14:44 Urine Nitrate Negative (Negative) 01/23/25 14:44 Urine Bilirubin Negative (Negative) 01/23/25 14:44 Urine Urobilinogen 1.0 mg/dL (Negative) 01/23/25 14:44 Ur Leukocyte Esterase Trace (Negative) A 01/23/25 14:44 Urine RBC 3-5 /hpf (0-2) 01/23/25 14:44 Urine WBC 21-50 /hpf (0-5) H 01/23/25 14:44 Ur Squamous Epith Cells 11-20 /hpf (0-5) H 01/23/25 14:44 Amorphous Sediment Not Reportable 01/23/25 14:44 Urine Bacteria 1+ /hpf (NONE) H 01/23/25 14:44 Hyaline Casts 94.33 /lpf 01/23/25 14:44 Fine Granular Casts 0-4 /lpf H 01/23/25 14:44 Coarse Granular Casts 5-10 /lpf H 01/23/25 14:44 Nasal MRSA (PCR) Not detected (Not Detecte) 01/23/25 18:00 Urine Opiates Screen Negative ng/mL (Negative) 01/23/25 14:44 Ur Barbiturates Screen Negative ng/mL (Negative) 01/23/25 14:44 Ur Phencyclidine Scrn Negative ng/mL (Negative) 01/23/25 14:44 Ur Amphetamines Screen Positive ng/mL (Negative) H 01/23/25 14:44 U Benzodiazepines Scrn Negative ng/mL (Negative) 01/23/25 14:44 Urine Cocaine Screen Negative ng/mL (Negative) 01/23/25 14:44 U Marijuana (THC) Screen Negative ng/mL (Negative) 01/23/25 14:44 Adenovirus (PCR) Not detected (NOT DETECT) 01/25/25 04:45 C. pneumoniae DNA (PCR) Not detected (NOT DETECT) 01/25/25 04:45 C. trachomatis (PCR) Not detected 01/25/25 17:00 Coronavirus 229E (PCR) Not detected (NOT DETECT) 01/25/25 04:45 Human Metapneumovir PCR Not detected (NOT DETECT) 01/25/25 04:45 Influenza A (H1) PCR Not detected (NOT DETECT) 01/25/25 04:45 Influ A (H1/09) PCR Not detected (NOT DETECT) 01/25/25 04:45 Influenza A (H3) PCR Not detected (NOT DETECT) 01/25/25 04:45 Influenza Type A (PCR) Not detected (NOT DETECT) 01/25/25 04:45 Influenza Type B (PCR) Not detected (NOT DETECT) 01/25/25 04:45 M. pneumoniae (PCR) Not detected (NOT DETECT) 01/25/25 04:45 N. gonorrhoeae (PCR) Not detected 01/25/25 17:00 Parainfluenza 1 (PCR) Not detected (NOT DETECT) 01/25/25 04:45 Parainfluenza 2 (PCR) Not detected (NOT DETECT) 01/25/25 04:45 Parainfluenza 3 (PCR) Not detected (NOT DETECT) 01/25/25 04:45 Parainfluenza 4 (PCR) Not detected (NOT DETECT) 01/25/25 04:45 RSV Type A (PCR) Not detected (NOT DETECT) 01/25/25 04:45 RSV Type B (PCR) Not detected (NOT DETECT) 01/25/25 04:45 Entero/Rhino (PCR) Not detected (NOT DETECT) 01/25/25 04:45 SARS-CoV-2 (PCR) Not detected (NOT DETECT) 01/25/25 04:45 Blood Type O Negative 01/25/25 09:25 Rho(D) Type Rh negative 01/25/25 09:25 Antibody Screen Negative 01/25/25 09:25 Crossmatch See Detail 01/25/25 09:25 Radiology Impressions Abdomen/Pelvis CT 01/23/25 14:14 IMPRESSION: 1. Circumferential wall thickening of the bladder correlate with urinalysis to assess for cystitis. 2. Bibasilar pneumonia with left parapneumonic effusion. 3. Mild splenomegaly. 4. Nonspecific small volume free fluid in the pelvis. Chest CT 01/25/25 16:29 IMPRESSION: 1. Moderate right and moderate to large left pleural effusion, the effusion on the left appears somewhat loculated. 2. Emphysematous changes. 3. Bilateral [id number]-right partially dependent lower lobe airspace infiltrates. Short-term 1 month follow-up exam is advised to assess for resolution and exclude underlying mass. Chest X-Ray 01/26/25 08:17 IMPRESSION: 1. Stable left pleuroparenchymal disease. 2. Interval worsening of right pleuroparenchymal disease. Chest CTA 01/26/25 08:35 IMPRESSION: 1. Near occlusion pulmonary embolism segmental branch of the LEFT lower lobe pulmonary artery. 2. No central pulmonary embolism but there is significant artifact through the proximal RIGHT main pulmonary artery. 3. Extensive multiloculated LEFT pleural effusion with pleural enhancement. Empyema cannot be excluded on this appearance. 4. Small layering RIGHT pleural effusion. 5. Bilateral lower lobe areas of dense consolidation and groundglass attenuation as described above. Most consistent with pneumonia. Recommend fol low-up to resolution. 6. RIGHT heart strain. 7. Filling defect in the LEFT ventricular apex. May be at mixing of blood with contrast. Thrombus not excluded. 8. Mildly dilated pulmonary artery. Recent Clincial Data Last Vital Signs Temp 97.9 F 01/26/25 11:41 Pulse 93 01/26/25 11:41 Resp 24 H 01/26/25 11:41 BP 113/77 01/26/25 11:41 Pulse Ox 97 01/26/25 11:41 O2 Del Method Nasal Cannula 01/26/25 11:41 O2 Flow Rate 2 01/26/25 11:41 Vital Signs Temp Pulse Resp BP Pulse Ox O2 Del Method O2 Flow Rate 01/26/25 11:41 97.9 F 93 24 H 113/77 97 Nasal Cannula 2 01/26/25 11:13 97.6 F 93 15 99/67 98 Nasal Cannula 2 01/26/25 08:20 117 H 24 H 86 L Room Air 01/26/25 07:35 97.7 F 107 H 15 114/71 93 Room Air 01/26/25 06:18 128 H 127/75 01/26/25 06:00 128 H 01/26/25 05:26 116 H 01/26/25 04:04 98.1 F 134 H 20 H 123/76 92 Intake & Output/Weight 01/24/25 01/25/25 01/26/25 01/27/25 06:59 06:59 06:59 06:59 Intake Total 4020 / 4020 1580 / 1580 3825 / 3825 1340 / 1340 Output Total 600 / 600 Balance 4020 / 4020 1580 / 1580 3225 / 3225 1340 / 1340 Weight 50.757 kg 50.349 kg 50.349 kg Vitals Last Vital Signs Temp 97.9 F 01/26/25 11:41 Pulse 93 01/26/25 11:41 Resp 24 H 01/26/25 11:41 BP 113/77 01/26/25 11:41 Pulse Ox 97 01/26/25 11:41 O2 Del Method Nasal Cannula 01/26/25 11:41 O2 Flow Rate 2 01/26/25 11:41 TS Medications Medications Acetaminophen (Acetaminophen 325 Mg Tablet) 650 mg PO Q6H PRN PRN Reason: Mild/Mod Pain Or Temp >/= 101 Last Admin: 01/26/25 04:30 Dose: 650 mg Albuterol/Ipratropium (Ipratropium-Albuterol 3 Ml Neb) 3 ml INHALATION Q4H PRN PRN Reason: Shortness Of Breath Alprazolam (Alprazolam 0.5 Mg Tablet) 1 mg PO TID PRN PRN Reason: ANXIETY Last Admin: 01/26/25 02:33 Dose: 1 mg Benzocaine (Cetylpyridinium Lozenge) 1 each MUCOUS MEM Q2H PRN PRN Reason: SORE THROAT Last Admin: 01/24/25 20:15 Dose: 1 each Benzonatate (Benzonatate 100 Mg Capsule) 200 mg PO TID PRN PRN Reason: COUGH Last Admin: 01/26/25 04:31 Dose: 200 mg Calcium Carbonate (Calcium Carbonate 500 Mg Chew Tablet) 1,000 mg PO Q4H PRN PRN Reason: DYSPEPSI Cefepime HCl (Cefepime 1,000 Mg Sdv) 1,000 mg IVP Q8H BRANT; Protocol Last Admin: 01/26/25 10:25 Dose: 1,000 mg Guaifenesin (Guaifenesin 600 Mg Tablet) 1,200 mg PO BID PRN PRN Reason: congestion Last Admin: 01/24/25 08:00 Dose: 1,200 mg Heparin Sodium (Porcine) (Heparin 5,000 Unit/Ml Inj 1 Ml) 0 unit IVP PRN PRN; Protocol PRN Reason: Heparin Weight Based Protocol -Subsequent Bolus Sodium Chloride (Sodium Chloride 0.9%) 1,000 mls @ 75 mls/hr IV .[id number] BRANT Last Admin: 01/26/25 10:27 Dose: 75 mls/hr Vancomycin HCl 750 mg/ Sodium (Chloride) 250 mls @ 250 mls/hr IV Q8H BRANT Last Admin: 01/26/25 10:26 Dose: 250 mls/hr Levofloxacin/Dextrose (Levaquin-D5w) 500 mg in 100 mls @ 100 mls/hr IV Q24H BRANT; Protocol Last Infusion: 01/26/25 12:13 Dose: Infused Heparin Sodium/Sodium Chloride (Heparin Drip) 25,000 unit in 500 mls @ 0 mls/hr IV CONT BRANT; Protocol Last Admin: 01/26/25 12:11 Dose: 14.9 unit/kg/hr, 15 mls/hr Lanolin (Lanolin Oint 7 Gm) 1 applic TOPICAL PRN PRN PRN Reason: DRYNESS Last Admin: 01/23/25 17:43 Dose: 1 applic Morphine Sulfate (Morphine 4 Mg/Ml Sdv 1 Ml) 2 mg IVP Q4H PRN PRN Reason: SEVERE PAIN Last Admin: 01/25/25 15:00 Dose: 2 mg Morphine Sulfate (Morphine 4 Mg/Ml Sdv 1 Ml) 2 mg IVP Q2H PRN PRN Reason: Severe Pain/Chest Pain/ Pleuri Last Admin: 01/24/25 20:09 Dose: 2 mg Ondansetron HCl (Ondansetron 2 Mg/Ml Sdv 2 Ml) 4 mg IVP Q8H PRN PRN Reason: vomiting, or N/V if npo Tramadol HCl (Tramadol 50 Mg Tablet) 50 mg PO Q4H PRN PRN Reason: MODERATE PAIN Last Admin: 01/26/25 02:33 Dose: 50 mg Trazodone HCl (Trazodone 50 Mg Tablet) 50 mg PO BEDTIME [facility] Last Admin: 01/25/25 20:36 Dose: 50 mg Discontinued Medications Acetaminophen (Acetaminophen 325 Mg Tablet) 650 mg PO ONCE ONE Stop: 01/23/25 14:16 Last Admin: 01/23/25 14:29 Dose: 650 mg Alprazolam (Alprazolam 0.5 Mg Tablet) 0.5 mg PO TID PRN PRN Reason: ANXIETY Last Admin: 01/24/25 00:46 Dose: 0.5 mg Heparin Sodium (Porcine) (Heparin 5,000 Unit/Ml Inj 1 Ml) 5,000 unit SUBCUT Q12H BRANT Last Admin: 01/26/25 04:30 Dose: 5,000 unit Heparin Sodium (Porcine) (Heparin 5,000 Unit/Ml Inj 1 Ml) 0 unit IVP ONCE ONE; Protocol Stop: 01/26/25 09:55 Last Admin: 01/26/25 11:58 Dose: 52 unit Sodium Chloride (Sodium Chloride 0.9%) 1,000 mls @ 999 mls/hr IV .Q1H1M ONE Stop: 01/23/25 15:14 Last Infusion: 01/23/25 14:45 Dose: Infused Sodium Chloride (Sodium Chloride 0.9%) 500 mls @ 999 mls/hr IV .Q31M ONE Stop: 01/23/25 14:49 Last Infusion: 01/23/25 15:00 Dose: Infused Vancomycin HCl 1,000 mg/ (Sodium Chloride) 250 mls @ 250 mls/hr IV ONCE ONE; Protocol Stop: 01/23/25 15:32 Last Infusion: 01/23/25 16:39 Dose: Infused Piperacillin Sod/Tazobactam (Sod 3.375 gm/ Sodium Chloride) 50 mls @ 100 mls/hr IV ONCE ONE; Protocol Stop: 01/23/25 15:02 Last Infusion: 01/23/25 15:37 Dose: Infused Sodium Chloride (Sodium Chloride 0.9%) 1,000 mls @ 999 mls/hr IV .Q1H1M ONE Stop: 01/23/25 16:41 Last Infusion: 01/23/25 16:40 Dose: Infused Vancomycin HCl / Sodium (Chloride) 250 mls @ 0 mls/hr [id number] PROTOCOL BRANT; Protocol Vancomycin HCl 500 mg/ Sodium (Chloride) 100 mls @ 200 mls/hr IV ONCE ONE Stop: 01/23/25 17:59 Last Infusion: 01/23/25 18:39 Dose: Infused Vancomycin HCl 750 mg/ Sodium (Chloride) 250 mls @ 250 mls/hr IV Q24H BRANT Vancomycin HCl 500 mg/ Sodium (Chloride) 100 mls @ 200 mls/hr IV Q12H [facility] Last Infusion: 01/24/25 09:08 Dose: Infused Vancomycin HCl / Sodium (Chloride) 250 mls @ 0 mls/hr [id number] PROTOCOL BRANT; Protocol Sodium Chloride (Sodium Chloride 0.9%) 1,000 mls @ 999 mls/hr IV .Q1H1M ONE Stop: 01/26/25 07:07 Last Infusion: 01/26/25 07:21 Dose: Infused Iohexol (Iohexol 350 Mg/Ml 500 Ml Btl (Per Ml)) 0 ml IV ONCE ONE Stop: 01/23/25 15:29 Last Admin: 01/23/25 15:28 Dose: 80 ml Iohexol (Iohexol 350 Mg/Ml 500 Ml Btl (Per Ml)) 0 ml IV ONCE ONE Stop: 01/26/25 09:22 Last Admin: 01/26/25 09:21 Dose: 100 ml Ketorolac Tromethamine (Ketorolac 30 Mg/Ml Inj) 15 mg IVP ONCE ONE Stop: 01/25/25 15:32 Last Admin: 01/25/25 16:19 Dose: 15 mg Lorazepam (Lorazepam 2 Mg/Ml Inj 1 Ml) 1 mg IVP ONCE ONE Stop: 01/23/25 14:15 Last Admin: 01/23/25 14:29 Dose: 1 mg Lorazepam (Lorazepam 1 Mg Tablet) 1 mg PO Q4H PRN PRN Reason: ANXIETY Last Admin: 01/23/25 22:41 Dose: 1 mg Metoprolol Tartrate (Metoprolol Tartrate 25 Mg Tablet) 25 mg PO BID@0900,2100 [facility] Last Admin: 01/23/25 23:16 Dose: 25 mg Metoprolol Tartrate (Metoprolol Tartrate 1 Mg/1 Ml Sdv 5 Ml) 2.5 mg IVP ONCE ONE Stop: 01/23/25 23:10 Last Admin: 01/23/25 23:16 Dose: 2.5 mg Metoprolol Tartrate (Metoprolol Tartrate 1 Mg/1 Ml Sdv 5 Ml) 2.5 mg IVP ONCE ONE Stop: 01/26/25 04:10 Last Admin: 01/26/25 04:30 Dose: 2.5 mg Metoprolol Tartrate (Metoprolol Tartrate 1 Mg/1 Ml Sdv 5 Ml) 2.5 mg IVP ONCE ONE Stop: 01/26/25 06:08 Last Admin: 01/26/25 06:19 Dose: 2.5 mg Sodium Chloride (Sodium Chloride 0.9% 100 Ml Bag) 50 ml IV PRN PRN PRN Reason: Blood transfusion prime and flush Stop: 01/26/25 09:13 Allergies No Known Allergies Allergy (Verified 01/23/25 12:59) Home Medications No Known Home Medications 01/23/25 [History Confirmed 01/23/25] Discharge Plan Discharge Patient Disposition: Xfer Other Condition: Stable Prescriptions: No Action No Known Home Medications Transfer Attestations Time Spent in Transfer Care: greater than 30 min Quality Metrics Clinical Quality Measures [ No reported AMI, CVA or VTE this stay] Coding Level of Care Code Acute Code for [facility] Fwd Diagnoses Severe sepsis A41.9; R65.20 KAMALJIT (acute kidney injury) N17.9 Pneumonia J18.9 Hyponatremia E87.1 Tobacco use Z72.0 Abnormal urinalysis R82.90 History of drug abuse F19.11 Transaminitis R74.01 Hypoalbuminemia E88.09 Dehydration E86.0 Tachycardia R00.0 Leukocytosis D72.829 Thrombocytosis D75.839 Microcytic anemia D50.9 Abdominal pain R10.9
--- NOTE | 2025-01-26 14:37 | PC.NURSE ---
Tried to call report to Michelle at [facility]. Michelle stated to call back in 20 minutes, she was in the middle of something. [id number] 01/26/2025
--- NOTE | 2025-01-26 16:18 | PM.CONSULT ---
Providers/Reason For Consult Attending Physician: Irena Canchola MD History of Present Illness History of Present Illness Samantha Hein is a 29 year old female Medications/Allergies Home Medications ?Medication ?Instructions ?Recorded ?Confirmed ?Last Taken ?Type No Known Home Medications 01/23/25 01/23/25 Unknown History Allergies Allergy/AdvReac Type Severity Reaction Status Date / Time No Known Allergies Allergy Verified 01/23/25 12:59 Current Medications Generic Name Dose Route Start Last Admin Trade Name Freq PRN Reason Stop Dose Admin Acetaminophen 650 mg 01/23/25 17:00 01/26/25 04:30 Acetaminophen 325 Mg Tablet PO 650 mg Q6H PRN Administration Mild/Mod Pain Or Temp >/= 101 Alprazolam 1 mg 01/24/25 08:41 01/26/25 15:53 Alprazolam 0.5 Mg Tablet PO 1 mg TID PRN Administration ANXIETY Benzocaine 1 each 01/23/25 18:07 01/24/25 20:15 Cetylpyridinium Lozenge MUCOUS MEM 1 each Q2H PRN Administration SORE THROAT Benzonatate 200 mg 01/23/25 17:00 01/26/25 04:31 Benzonatate 100 Mg Capsule PO 200 mg TID PRN Administration COUGH Cefepime HCl 1,000 mg 01/23/25 17:30 01/26/25 10:25 Cefepime 1,000 Mg Sdv IVP 1,000 mg Q8H BRANT Administration Protocol Guaifenesin 1,200 mg 01/23/25 17:00 01/24/25 08:00 Guaifenesin 600 Mg Tablet PO 1,200 mg BID PRN Administration congestion Sodium Chloride 1,000 mls @ 75 mls/hr 01/23/25 17:00 01/26/25 10:27 Sodium Chloride 0.9% IV 75 mls/hr .[id number] BRANT Administration Vancomycin HCl 750 mg/ Sodium 250 mls @ 250 mls/hr 01/25/25 17:30 01/26/25 10:26 Chloride IV 250 mls/hr Q8H BRANT Administration Levofloxacin/Dextrose 500 mg in 100 mls @ 100 mls/hr 01/26/25 08:45 01/26/25 12:13 Levaquin-D5w IV Infused Q24H BRANT Infusion Protocol Heparin Sodium/Sodium Chloride 25,000 unit in 500 mls @ 0 mls/hr 01/26/25 10:00 01/26/25 12:11 Heparin Drip IV 14.9 unit/kg/hr CONT BRANT 15 mls/hr Administration Protocol Per Protocol Morphine Sulfate 2 mg 01/23/25 17:00 01/25/25 15:00 Morphine 4 Mg/Ml Sdv 1 Ml IVP 2 mg Q4H PRN Administration SEVERE PAIN Morphine Sulfate 2 mg 01/24/25 08:40 01/24/25 20:09 Morphine 4 Mg/Ml Sdv 1 Ml IVP 2 mg Q2H PRN Administration Severe Pain/Chest Pain/ Pleuri Tramadol HCl 50 mg 01/25/25 20:47 01/26/25 15:53 Tramadol 50 Mg Tablet PO 50 mg Q4H PRN Administration MODERATE PAIN Trazodone HCl 50 mg 01/24/25 21:00 01/25/25 20:36 Trazodone 50 Mg Tablet PO 50 mg BEDTIME BRANT Administration PFSH Acute PFSH: Medical History Encounter for sterilization Atypical chest pain Tobacco use complicating History of drug abuse Normal vaginal delivery of fourth Fracture of scaphoid bone of right wrist Surgical History History of tubal ligation History of adenoidectomy Family History Mother Lung cancer Grandfather Stomach cancer Sister Depression Social History Smoking and tobacco/nicotine status: current every day tobacco/nicotine user Alcohol intake: unknown Substance/Drug Use: current Vitals/I&O/Wt Last Vital Signs Temp 97.9 F 01/26/25 11:41 Pulse 93 01/26/25 11:41 Resp 24 H 01/26/25 11:41 BP 113/77 01/26/25 11:41 Pulse Ox 97 01/26/25 11:41 O2 Del Method Nasal Cannula 01/26/25 11:41 O2 Flow Rate 2 01/26/25 11:41 01/26/25 01/26/25 01/26/25 06:59 14:59 22:59 Intake Total 250 / 3825 1340 / 1340 Balance 250 / 3225 1340 / 1340 Weight last 48 hrs Weight 50.349 kg Weight 50.349 kg Data 01/26/25 04:50 01/26/25 04:50 Micro: Microbiology 01/25/25 17:00 Urine Culture - Preliminary Urine,Voided 01/23/25 14:52 Blood Culture - Preliminary Blood 01/25/25 21:05 Blood Culture - Preliminary Blood SPECIMEN COLLECTED 01/25/25 20:10 Blood Culture - Preliminary Blood SPECIMEN COLLECTED A&P PDMP PDMP Reviewed: Not Reviewed Coding Level of Care Code Acute Code for Chg Fwd
[2025-01-26] MEDS: lanolin oint 7 gm 1 APPLIC TOPICAL (16:37)
[2025-01-26] MEDS: morphine 4 mg/mL SDV 1 mL 2 MG IVP (16:37)
[2025-01-26 16:56] LABS: Basophils # 0.1 10^3/uL (0.0-0.1); Basophils % 0.6 %; Eosinophils # 0.1 10^3/uL (0.0-0.8); Eosinophils % 0.7 %; Hematocrit 36.9 % (36-47); Lymphocytes # 1.5 10^3/uL (0.8-4.8); Mean Corpuscular Hemoglobin 26.8 pg (27-33); Mean Corpuscular Volume 83.7 fl (85-98); Monocytes # 0.7 10^3/uL (0.2-0.9); Monocytes % 5.4 %; Neutrophils # 9.85 10^3/uL (1.8-7.7); Neutrophils % 80.4 %; Nucleated Red Blood Cells % 0 %; Platelet Count 289 10^3/cmm (157-399); Red Blood Count 4.41 10^6/uL (3.85-5.65); Red Cell Distribution Width 15.8 % (12.1-15.1); White Blood Count 12.25 10^3/uL (3.29-11.43)
[2025-01-26 17:12] LABS: Vancomycin Trough 14.4 ug/mL (10-15)
--- NOTE | 2025-01-26 17:23 | PC.NURSE ---
Michelle called back for report. Gave report to Lashell Green RN, patient going in room 2431
[2025-01-26 18:39] LABS: Slide Review Slide Review Perform
[2025-02-01 08:20] LABS: Alprazolam 77 ng/mL; Amphetamine negative; Barbiturates negative; Benzodiazepines POSITIVE; Cocaine Metabolites negative; Lorazepam negative; Marijuana(Tetrahydrocannabino) negative; N-desalkylflurazepam negative; Opiates negative; PCP (Phencyclidine) negative
== END 2025-01-26 17:15 | disposition short-term general hospital (02) | DRG 871 ==
LOC: ER 16:00 → MEDSURG 16:37
PROVIDERS: Internal Medicine; Admitting Provider Internal Medicine; Emergency Provider Emergency Medicine; Visit Provider Internal Medicine
DX: A41.9 Sepsis, unspecified organism (principal); I26.99 Other pulmonary embolism without acute cor pulmonale; J18.9 Pneumonia, unspecified organism; N17.9 Acute kidney failure, unspecified; E87.1 Hypo-osmolality and hyponatremia; J90 Pleural effusion, not elsewhere classified; R65.20 Severe sepsis without septic shock; R74.01 Elevation of levels of liver transaminase levels; E88.09 Other disorders of plasma-protein metabolism, not elsewhere classified; E86.0 Dehydration; D69.6 Thrombocytopenia, unspecified; D50.9 Iron deficiency anemia, unspecified; R10.9 Unspecified abdominal pain; R09.02 Hypoxemia; I51.9 Heart disease, unspecified; F17.210 Nicotine dependence, cigarettes, uncomplicated; E87.8 Other disorders of electrolyte and fluid balance, not elsewhere classified
CPT/HCPCS: 36415; 36430; 71045; 71250; 71275; 74177; 80053; 80202; 80306; 80307; 81001; 82728; 83540; 83550; 83605; 83690; 83735; 84100; 84145; 85014; 85018; 85025; 85378; 86140; 86403; 86850; 86900; 86920; 87040; 87086; 87150; 87205; 87486; 87491; 87581; 87591; 87633; 93005; 93306; 93308; 96365; 96366; 96367; 96372; 96375; 99285; J0692; J1644; J1885; J1956; J2060; J2270; J2543; J3370; J3490; J7030; J7040; J7050; J9999; P9016

== ENCOUNTER → 2025-09-01 17:52 | Outpatient (BNVA) | payer MEDICAID, SELFPAY | PROVIDERS: Visit Provider Nurse Practitioner | DX: Z20.2 Contact with and (suspected) exposure to infections with a predominantly sexual mode of transmission (principal) | CPT/HCPCS: 81000; 87491; 87591 ==